=== PATIENT | female | born 1985 | race Caucasian/White ===

== ENCOUNTER 2020-07-12 14:07 | Outpatient (REF) | payer MEDICAID, SELFPAY ==
--- NOTE | 2020-07-12 | XR_ITS ---
EXAMINATION: XR KNEE, RIGHT CLINICAL INFORMATION: Pain. COMPARISON: None TECHNIQUE: AP, lateral, tunnel, and sunrise views of the right knee. FINDINGS: Bones and soft tissues are normal. No fracture or dislocation. There is a very small joint effusion. Alignment is anatomic. Joint spaces are well maintained. No abnormal soft tissue calcification. IMPRESSION: 1. No right knee fracture, dislocation or unusual degenerative change is seen. 2. There is a very small right knee joint effusion. EXAMINATION: XR KNEE, LEFT CLINICAL INFORMATION: Pain. COMPARISON: None TECHNIQUE: AP, lateral, tunnel, and sunrise views of the left knee. FINDINGS: Bones and soft tissues are normal. No fracture or dislocation. There is no significant joint effusion. There is a patella ketty configuration. Joint spaces are well maintained. No abnormal soft tissue calcification. IMPRESSION: 1. No left knee fracture, dislocation or significant joint effusion is seen. 2. The left knee shows a patella ketty configuration.
== END 2020-07-12 14:08 | disposition home or self-care (01) ==
LOC: HO.XRAY 14:07
PROVIDERS: PCP Internal Medicine; Visit Provider Family Medicine
DX: M25.561 Pain in right knee (principal); M25.562 Pain in left knee
CPT/HCPCS: 73564

== ENCOUNTER 2020-07-25 15:00 | Outpatient (RCR) | payer MEDICAID, SELFPAY | END 2020-10-31 12:11 | disposition other institution (70) | LOC: HO.PT 15:00 | PROVIDERS: PCP Internal Medicine; Visit Provider Family Medicine | DX: M25.561 Pain in right knee (principal) | CPT/HCPCS: 97110; 97140; 97161 ==

== ENCOUNTER 2020-10-09 12:37 | Outpatient (REF) | payer MEDICAID, SELFPAY ==
--- NOTE | 2020-10-09 | MR_ITS ---
EXAMINATION: MR KNEE WITHOUT CONTRAST, RIGHT CLINICAL INFORMATION: Primary knee arthrosis. Patient states chronic right knee pain medial the posterior. No recent injury. COMPARISON: Right knee radiographs dated July 12, 2020. TECHNIQUE: MRI of the knee without contrast was performed using routine sequences on a high-field scanner. FINDINGS: MENISCI: Medial Meniscus: Intact. A multiseptated cystic lesion is positioned posterior to the posterior root and posterior horn the medial meniscus (6:05/01), (4:07/28) measuring 0.5 x 1.1 x 0.8 cm, compatible with a parameniscal cyst. Lateral Meniscus: Intact LIGAMENTS: Cruciate: Intact Collateral: Intact EXTENSOR MECHANISM: Intact ARTICULAR CARTILAGE/BONE: Patellofemoral Compartment: Normal Medial Compartment: Normal Lateral Compartment: Normal JOINT FLUID AND BURSAE: Normal MR/MR knee RT wo con IMPRESSION: Right knee: 1. Intact menisci. Multiseptated cystic lesion posterior to the posterior root and posterior horn of the medial meniscus compatible with a parameniscal cyst. 2. Intact cruciate and collateral ligaments. 3. Preserved tricompartmental articular cartilage. 4. Small joint effusion.
== END 2020-10-09 12:38 | disposition home or self-care (01) ==
LOC: HO.MRI 12:37
PROVIDERS: Visit Provider Internal Medicine
DX: M17.11 Unilateral primary osteoarthritis, right knee (principal)
CPT/HCPCS: 73721

== ENCOUNTER → 2020-11-09 08:51 | Outpatient (BNVA) | payer MEDICAID, SELFPAY | PROVIDERS: PCP Internal Medicine; Visit Provider Physician Assistant | DX: M22.2X1 Patellofemoral disorders, right knee (principal); M17.11 Unilateral primary osteoarthritis, right knee | CPT/HCPCS: 20610; 99202; J1040 ==

== ENCOUNTER → 2020-12-07 08:39 | Outpatient (BNVA) | payer MEDICAID, SELFPAY | PROVIDERS: Visit Provider Physician Assistant | DX: Z13.89 Encounter for screening for other disorder (principal) | CPT/HCPCS: 99212 ==

== ENCOUNTER 2021-01-17 10:35 | Outpatient (REF) | payer MEDICAID, SELFPAY ==
[2021-01-17 13:44] LABS: HCG Quantitative < 2 mIU/mL
[2021-01-18 09:05] LABS: CT PCR NOT DETECTED (Not Detect.); NG PCR NOT DETECTED (Not Detect.)
[2021-01-18 11:00] LABS: BV Int Neg Control Negative (Negative); BV Int Pos Control Positive (Positive)
== END 2021-01-17 10:36 | disposition home or self-care (01) ==
LOC: HO.LAB 10:35
PROVIDERS: PCP Internal Medicine; Visit Provider Advanced Practice Midwife
DX: N89.8 Other specified noninflammatory disorders of vagina (principal); N92.6 Irregular menstruation, unspecified; Z20.2 Contact with and (suspected) exposure to infections with a predominantly sexual mode of transmission
CPT/HCPCS: 36415; 81025; 84146; 84702; 87480; 87491; 87510; 87591; 87660; 99202

== ENCOUNTER → 2021-03-20 15:25 | Outpatient (BNVA) | payer MEDICAID, SELFPAY | PROVIDERS: Visit Provider Advanced Practice Midwife ==

== ENCOUNTER → 2021-08-05 11:01 | Outpatient (BNVA) | payer MEDICAID, SELFPAY | PROVIDERS: PCP Internal Medicine; Visit Provider Anesthesiology | DX: M17.11 Unilateral primary osteoarthritis, right knee (principal); M22.2X1 Patellofemoral disorders, right knee | CPT/HCPCS: 99202 ==

== ENCOUNTER 2021-08-28 08:01 | Outpatient (REF) | payer MEDICAID, SELFPAY ==
[2021-08-28 09:42] LABS: Hematocrit 41.1 % (37.0-47.0); Hemoglobin 14.2 g/dl (12.0-16.0); Mean Corpuscular HGB Conc 34.5 g/dl (31.0-35.0); Mean Corpuscular Hemoglobin 31.1 pg (27.0-33.0); Mean Corpuscular Volume 90.1 fL (80.0-98.0); Mean Platelet Volume 10.9 fL (9.4-12.3); Platelet Count 390 X10*3/uL (160-400); Red Blood Count 4.56 X10*6/uL (4.20-5.50); Red Cell Distribution Width 11.4 % (11.0-16.0); White Blood Count 8.8 X10*3/uL (4.8-10.8)
[2021-08-28 10:20] LABS: HCG Quantitative < 2 mIU/mL; Thyroid Stimulating Hormone 0.34 uIU/mL (0.32-4.0)
[2021-08-28 14:04] LABS: CT PCR NOT DETECTED (Not Detect.); NG PCR NOT DETECTED (Not Detect.)
[2021-08-31 01:41] LABS: DHEA Sulfate 76 mcg/dL (23-266)
[2021-09-03 11:07] LABS: Testosterone, Free 2.7 pg/mL (0.1-6.4); Testosterone, Total 20 ng/dL (2-45)
[2021-09-04 06:27] LABS: HPV mRNA E6/E7 rflx Not Detected (Not Detected)
== END 2021-08-28 08:02 | disposition home or self-care (01) ==
LOC: HO.LAB 08:01
PROVIDERS: PCP Internal Medicine; Visit Provider Obstetrics & Gynecology
DX: Z01.411 Encounter for gynecological examination (general) (routine) with abnormal findings (principal); Z11.51 Encounter for screening for human papillomavirus (HPV); N93.9 Abnormal uterine and vaginal bleeding, unspecified; L68.0 Hirsutism
CPT/HCPCS: 36415; 82627; 83498; 84402; 84403; 84443; 84702; 85027; 87491; 87591; 87624; 88142

== ENCOUNTER 2021-09-17 15:37 | Outpatient (REF) | payer MEDICAID, SELFPAY ==
--- NOTE | ~2021-09-17 | US_ITS ---
EXAMINATION: US PELVIS CLINICAL INFORMATION: Hirsutism COMPARISON: 10/20/2019 TECHNIQUE: Ultrasound of the pelvis is performed using both transabdominal and transvaginal transducers along with Doppler. Transvaginal imaging is performed due to inadequate visualization transabdominally. FINDINGS: Uterus: Uterus is measuring 12 x 4.6 x 5.1 cm. Anteverted and mildly anteflexed. The canal measures 8 mm within normal limits. The myometrium is felt to be within normal limits. The right ovary is measuring 4.4 x 3.2 x 2.9 cm. Volume 21 mL. Follicles are noted. No dominant mass or large cyst. There is an element of peripheral location of the follicles. The left ovary is 3.8 x 2.1 x 3.2 cm. Volume 13 mL. Again follicles are seen here. These do appear more peripheral. No free fluid or obvious adnexal mass. Overall vascularity of the ovaries is within normal limits. US/US pelvic and transvaginal IMPRESSION: No acute finding. Ovaries are once again demonstrated with some small follicles which do have a somewhat peripheral location bilaterally.
== END 2021-09-17 15:38 | disposition home or self-care (01) ==
LOC: HO.US 15:37
PROVIDERS: PCP Internal Medicine; Visit Provider Obstetrics & Gynecology
DX: L68.0 Hirsutism (principal)
CPT/HCPCS: 76830; 76856

== ENCOUNTER 2021-09-18 08:30 | Outpatient (REF) | payer MEDICAID, SELFPAY | END 2021-09-18 08:31 | disposition home or self-care (01) | LOC: HO.LAB 08:30 | PROVIDERS: PCP Internal Medicine; Visit Provider Obstetrics & Gynecology | DX: N93.9 Abnormal uterine and vaginal bleeding, unspecified (principal) | CPT/HCPCS: 58100; 88305 ==

== ENCOUNTER → 2021-10-03 16:13 | Outpatient (BNVA) | payer MEDICAID, SELFPAY | PROVIDERS: Visit Provider Obstetrics & Gynecology ==

== ENCOUNTER 2021-11-21 | Outpatient (REF) | payer MEDICAID, SELFPAY ==
[2021-10-18 15:39] VITALS: BMI 35.0
--- NOTE | 2021-11-20 13:09 | HO.ANESPROP2 ---
HPI - Anesthesia Eval Consult details Narrative: 36yo F for Right Genicular Nerve Block Diagnostic PMFSH Active Problems Active Problems: All Active Problems (Updated 10/18/21 @ 15:43 by Sadaf Ansari, RN) Patellofemoral syndrome of right knee (Acute) Patellofemoral arthritis of right knee (Acute) Problematic vaginal discharge (Acute) Potential exposure to STD (Acute) Irregular menses (Acute) Well woman exam (Acute) Abnormal uterine bleeding (AUB) (Acute) Hirsutism (Acute) Past Medical History Medical History (Updated 10/18/21 @ 15:43 by Sadaf Ansari, RN) Acid reflux Asthma COVID-19 vaccine series completed Dysplasia of cervix, low grade (WALLACE 1) Hypertension Personal history of COVID-19 Surgical History Surgical History History of section Hx of appendectomy Social History Social History (Updated 10/18/21 @ 15:38 by Sadaf Ansari RN) Alcohol intake: never Patient Tobacco Use Status: Never used Tobacco 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 Gender identity: Female Meds Allergies Allergy/AdvReac Type Severity Reaction Status Date / Time No Known Allergies Allergy Verified 10/18/21 15:38 [No Known Allergies*] Home Medications Medication Instructions Recorded Confirmed Last Taken Type cetirizine 10 mg capsule (All Day 10 mg PO DAILY PRN 11/09/20 10/18/21 Unknown History Allergy (cetirizine)) famotidine 40 mg tablet 40 mg PO BEDTIME 11/09/20 10/18/21 Unknown History nifedipine 30 mg tablet,extended 30 mg PO DAILY 11/09/20 10/18/21 Unknown History release naproxen 500 mg tablet 500 mg PO BID 08/05/21 Unknown History montelukast 10 mg tablet 10 mg PO DAILY 08/28/21 10/18/21 Unknown History Exam Exam Date and Time: November 20, 2021 1309 Height,Weight and Vital Signs: Height 5 ft 4 in Weight 92.533 kg Pertinent Lab Results Pertinent Lab Results: Laboratory Tests 08/28/21 08:57 WBC 8.8 Hgb 14.2 Hct 41.1 Plt Count 390 Assessment and Plan Assessment Anesthesia Assessment: Chart Reviewed
== END 2021-11-21 00:01 ==
LOC: CF
PROVIDERS: PCP Internal Medicine; Visit Provider Advanced Practice Midwife
DX: N93.9 Abnormal uterine and vaginal bleeding, unspecified (principal); N92.0 Excessive and frequent menstruation with regular cycle; L68.0 Hirsutism; E28.2 Polycystic ovarian syndrome; Z86.16 Personal history of COVID-19; Z32.02 Encounter for pregnancy test, result negative; Z20.2 Contact with and (suspected) exposure to infections with a predominantly sexual mode of transmission
CPT/HCPCS: 81025; 87480; 87491; 87510; 87591; 87660; 99212

== ENCOUNTER 2021-11-21 13:16 | Outpatient (REF) | payer MEDICAID, SELFPAY ==
[2021-11-22 12:24] LABS: BV Int Neg Control Negative (Negative); BV Int Pos Control Positive (Positive)
[2021-11-22 13:05] LABS: CT PCR NOT DETECTED (Not Detect.); NG PCR NOT DETECTED (Not Detect.)
== END 2021-11-21 13:17 | disposition home or self-care (01) ==
LOC: HO.LAB 13:16
PROVIDERS: Visit Provider Advanced Practice Midwife
DX: Z01.419 Encounter for gynecological examination (general) (routine) without abnormal findings (principal); N92.0 Excessive and frequent menstruation with regular cycle; Z20.2 Contact with and (suspected) exposure to infections with a predominantly sexual mode of transmission
CPT/HCPCS: 87480; 87491; 87510; 87591; 87660

== ENCOUNTER → 2021-12-10 20:48 | Outpatient (REF) | payer MEDICAID, SELFPAY | LOC: HO.SL 20:48 | PROVIDERS: PCP Internal Medicine; Visit Provider Internal Medicine | DX: G47.33 Obstructive sleep apnea (adult) (pediatric) (principal) | CPT/HCPCS: 95810 ==

== ENCOUNTER → 2022-02-04 09:46 | Outpatient (BNVA) | payer MEDICAID, SELFPAY | PROVIDERS: PCP Internal Medicine; Visit Provider Nurse Practitioner Family | DX: M22.2X1 Patellofemoral disorders, right knee (principal); M17.11 Unilateral primary osteoarthritis, right knee; M25.561 Pain in right knee | CPT/HCPCS: 99212 ==

== ENCOUNTER 2022-03-18 06:20 | Outpatient (REF) | payer MEDICAID, SELFPAY | END 2022-03-18 06:21 | disposition home or self-care (01) | LOC: HO.RADIR 06:20 | PROVIDERS: Visit Provider Anesthesiology | DX: M22.2X1 Patellofemoral disorders, right knee (principal); M17.11 Unilateral primary osteoarthritis, right knee | CPT/HCPCS: 64447; J2795 ==

== ENCOUNTER → 2022-03-25 14:06 | Outpatient (BNVA) | payer MEDICAID, SELFPAY | PROVIDERS: PCP Internal Medicine; Visit Provider Nurse Practitioner Family | DX: M22.2X1 Patellofemoral disorders, right knee (principal); M17.11 Unilateral primary osteoarthritis, right knee; M25.561 Pain in right knee | CPT/HCPCS: 99212 ==

== ENCOUNTER 2022-04-08 16:47 | Emergency (ER) | payer MEDICAID, SELFPAY ==
--- NOTE | ~2022-04-08 | XR_ITS ---
EXAMINATION: XR CHEST CLINICAL INFORMATION: Chest tightness COMPARISON: 08/15/2019 TECHNIQUE: Frontal view of the chest was obtained. FINDINGS: Interval resolution of the right upper lobe focal opacity. No new or increasing pulmonary consolidations. No pleural effusion or pneumothorax. Heart size is normal. No acute osseous abnormality. XR/XR chest 1V IMPRESSION: No acute pulmonary process. Interval resolution of the right upper lobe consolidation.
[2022-04-08 19:10] VITALS: BMI 36.2
[2022-04-08 19:22] VITALS: BP 133/76; PULSE 81; RESP 16; TEMP 36.9; O2SAT 94
[2022-04-08 19:39] VITALS: BP 156/91; PULSE 90; RESP 20; TEMP 36.9; O2SAT 97
[2022-04-08 19:49] LABS: Influenza A Negative (Negative); Influenza B2 Negative (Negative)
[2022-04-08 19:50] LABS: COVID-19 Test Negative (Negative); IDNOW Serial# 16C4AD1C
--- NOTE | 2022-04-08 20:17 | ED.URI ---
HPI - URI/Sore Throat General Chief Complaint: Upper Respiratory Symptoms Stated Complaint: body aches/headaches/chills Time Seen by Provider: 04/08/22 19:29 Source: patient Mode of arrival: ambulatory History of Present Illness HPI Narrative: 37-year-old female with a past medical history of GERD, asthma, COVID-19 in October, , presenting to the ED complaining of nonproductive cough x2 days with chest tightness and SOB. Also reports nasal congestion, and chest discomfort when coughing. States symptoms not improved with nebs at home. Denies fever, chills, recent travel, pedal edema, calf pain, sick contacts MD elicited complaint: rhinorrhea and nasal congestion Onset (ago): day(s) Related Data Home Medications Medication Instructions Recorded Confirmed cetirizine 10 mg capsule (All Day 10 mg PO DAILY PRN Allergy Symptoms 11/09/20 11/21/21 Allergy (cetirizine)) famotidine 40 mg tablet 40 mg PO BEDTIME 11/09/20 11/21/21 acetaminophen 650 mg 650 mg PO Q8H PRN 02/04/22 tablet,extended release albuterol sulfate mg inhalation wheezing 02/04/22 albuterol sulfate 90 mcg/actuation 2 puff PO Q4-6H PRN 02/04/22 aerosol inhaler (ProAir HFA) fluticasone propionate 50 1 - 2 spray intranasal DAILY PRN 02/04/22 mcg/actuation nasal spray,suspension ibuprofen 800 mg tablet 800 mg PO TID 02/04/22 nifedipine 60 mg tablet,extended 60 mg PO DAILY 02/04/22 release 24 hr Previous Rx's Medication Instructions Recorded prednisone 20 mg tablet 40 mg PO DAILY 5 days #10 tabs 04/08/22 Allergies Allergy/AdvReac Type Severity Reaction Status Date / Time No Known Allergies Allergy Verified 04/08/22 19:12 [No Known Allergies*] Review of Systems Review of Systems: Constitutional: No Fever, No Chills ENT/Mouth: No Ear Pain, + Nasal Congestion, No Sinus Pain, No Hoarseness, No sore throat, + Rhinorrhea, No Swallowing Difficulty Cardiovascular: + Chest tightness, + SOB Respiratory: + Cough, No Sputum, + Wheezing Gastrointestinal: No Nausea, No Vomiting, No Diarrhea, No Constipation, No Abdominal pain Genitourinary: No Dysuria, No Urinary Frequency, No Hematuria Musculoskeletal: No joint pain, No Myalgias, No Joint Swelling Skin: No Skin Lesions, No rash Neuro: No Weakness, No Numbness, No Paresthesias Yes all other systems are reviewed and are negative [facility] Past Medical History Attestation statement: The following information was validated with the patient. 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 Gender identity: Female Physical Exam Vital Signs: Vital Signs: Last Vital Signs Temp 98.4 F 04/08/22 19:39 Pulse 90 04/08/22 20:54 Resp 20 04/08/22 20:54 BP 156/91 H 04/08/22 19:39 Pulse Ox 97 04/08/22 19:39 O2 Del Method 04/08/22 19:39 BMI result Body Mass Index 36.2 Const: General: cooperative, healthy appearing and no acute distress Orientation/consciousness: patient oriented x3 Limitations: no limitations HEENT: Head: Yes normal to inspection and Yes atraumatic Ears: hearing grossly normal bilaterally General nose exam: Normal external nose present Face and sinus: Yes normal facial exam Mouth: Normal oral and palatal mucosa present Throat: Yes posterior oropharynx normal, Yes tonsils normal, Yes uvula midline, No abnormal tonsil, No peritonsillar mass, No uvula laterally displaced and No uvular edema Eyes: General: appearance normal, both eyes and all related structures EOM: EOMs intact bilaterally Neck: Neck: Yes normal visual inspection and Yes no meningeal signs Resp: Effort & Inspection: normal respiratory effort, Actively coughing Quality: dry, not labored and no respiratory distress Auscultation: wheezes expiratory wheezes Cardio: Rate: regular rate Heart sounds: S1 normal heart sound present and S2 normal heart sound present Skin: Rashes: no rashes Wounds: no wounds Neuro: General: patient oriented x3, tone normal and no meningeal signs Gait exam (Neuro): Normal gait present Extrem: General: Yes normal to inspection, Yes no pedal edema and Yes no calf tenderness Course Course Course Narrative: -COVID-19 and influenza negative -2204--labs unremarkable. Troponin negative XR chest 1V IMPRESSION: No acute pulmonary process. Interval resolution of the right upper lobe consolidation. On re-evaluation after DuoNeb patient reports symptomatic improvement, lungs CTA. Patient requesting additional DuoNeb. MDM - URI/Sore Throat MDM Narrative Medical decision making narrative: 37-year-old female with a past medical history of GERD, asthma, COVID-19 in October, HTN, presenting to the ED complaining of nonproductive cough x2 days with chest tightness and SOB. On exam vital signs stable, and ADD/nontoxic-appearing, talking in complete sentences/no respiratory distress. Diffuse expiratory wheeze noted. Concern for asthma exacerbation vs viral syndrome vs bronchitis vs pna. Symptoms atypical for ACS/PE Plan: EKG, labs, CXR, COVID-19/influenza testing, IV Solu-Medrol, DuoNeb Differential Diagnosis Differential diagnosis: Likely upper respiratory infection, viral infection, bronchitis, influenza and pharyngitis Medical Records Attestation: I reviewed the patient's medical records. Lab Data Attestation: I reviewed the patient's lab results. Result diagrams: 04/08/22 20:25 04/08/22 20:26 Labs: Lab Results 04/08/22 04/08/22 04/08/22 Range/Units 19:23 19:23 20:25 WBC 6.6 (4.8-10.8) X10*3/uL RBC 4.33 (4.20-5.50) X10*6/uL Hgb 13.5 (12.0-16.0) g/dl Hct 38.5 (37.0-47.0) % MCV 88.9 (80.0-98.0) fL MCH 31.2 (27.0-33.0) pg MCHC 35.1 H (31.0-35.0) g/dl RDW 11.6 (11.0-16.0) % Plt Count 267 D (160-400) X10*3/uL MPV 10.3 (9.4-12.3) fL Immature Gran % (Auto) 0.2 (0.0-0.4) % Neut % (Auto) 68.6 (45-73) % Lymph % (Auto) 13.0 L (20-40) % [place] % (Auto) 10.7 (2-11) % Eos % (Auto) 6.9 H (0-4) % Baso % (Auto) 0.6 (0-2) % Lymph # (Auto) 0.9 L (1.2-4.9) X10*3/uL [place] # (Auto) 0.7 (0.1-1.2) X10*3/uL Eos # (Auto) 0.5 H (0.0-0.4) X10*3/uL Baso # (Auto) 0.0 (0.0-0.2) X10*3/uL Abs Immat Gran (auto) 0.01 (0.00-0.03) X10*3/uL Absolute Neuts (auto) 4.5 (2.0-8.3) x10*3/uL Absolute Nucleated RBC 0.000 (0.0-0.012) X10*3/uL Nucleated RBC % (auto) 0.0 (0.0-0.2) /100WBC Sodium (135-145) mmol/L Potassium (3.3-5.1) mmol/L Chloride (96-108) mmol/L Carbon Dioxide (22-29) mmol/L Anion Gap (12-20) BUN (9-16) mg/dL Creatinine (0.5-1.4) mg/dL Estim Creat Clear Calc Estimated GFR Random Glucose (60-115) mg/dL Calcium (8.4-10.2) mg/dL Troponin I High Sens (<3.5-17.0) ng/L B-Natriuretic Peptide (<100) pg/mL COVID-19 (AGUSTINA) Negative (Negative) COVID-19 Clin Com See Note Influenza Type A (ISMAEL) Negative (Negative) Influenza Type B (ISMAEL) Negative (Negative) Influenza A & B Note See Note 04/08/22 04/08/22 Range/Units 20:25 20:26 WBC (4.8-10.8) X10*3/uL RBC (4.20-5.50) X10*6/uL Hgb (12.0-16.0) g/dl Hct (37.0-47.0) % MCV (80.0-98.0) fL MCH (27.0-33.0) pg MCHC (31.0-35.0) g/dl RDW (11.0-16.0) % Plt Count (160-400) X10*3/uL MPV (9.4-12.3) fL Immature Gran % (Auto) (0.0-0.4) % Neut % (Auto) (45-73) % Lymph % (Auto) (20-40) % [place] % (Auto) (2-11) % Eos % (Auto) (0-4) % Baso % (Auto) (0-2) % Lymph # (Auto) (1.2-4.9) X10*3/uL [place] # (Auto) (0.1-1.2) X10*3/uL Eos # (Auto) (0.0-0.4) X10*3/uL Baso # (Auto) (0.0-0.2) X10*3/uL Abs Immat Gran (auto) (0.00-0.03) X10*3/uL Absolute Neuts (auto) (2.0-8.3) x10*3/uL Absolute Nucleated RBC (0.0-0.012) X10*3/uL Nucleated RBC % (auto) (0.0-0.2) /100WBC Sodium 138 (135-145) mmol/L Potassium 3.8 (3.3-5.1) mmol/L Chloride 107 (96-108) mmol/L Carbon Dioxide 22 (22-29) mmol/L Anion Gap 13 (12-20) BUN 8 L (9-16) mg/dL Creatinine 0.75 (0.5-1.4) mg/dL Estim Creat Clear Calc 116.4 Estimated GFR > 60 Random Glucose 118 H (60-115) mg/dL Calcium 8.7 (8.4-10.2) mg/dL Troponin I High Sens < 3.5 (<3.5-17.0) ng/L B-Natriuretic Peptide < 10 (<100) pg/mL COVID-19 (AGUSTINA) (Negative) COVID-19 Clin Com Influenza Type A (ISMAEL) (Negative) Influenza Type B (ISMAEL) (Negative) Influenza A & B Note Discharge Plan Discharge Clinical Impression: Asthma with acute exacerbation Patient Disposition: Home, Self-Care Instructions: Asthma (ED) Additional Instructions: Your x-ray does not show any acute pneumonia. Her blood work was reassuring. Please use her nebulizer machine at home as well as your inhalers. In addition start taking prednisone which is a steroid. Follow up with her doctor. If symptoms persist or worsen please return to the emergency department Tuttle radiograf?a no muestra ninguna neumon?a aguda. Tuttle an?lisis de patricia fue tranquilizador. Utilice tuttle m?quina nebulizadora en casa, as? codey merly inhaladores. Adem?s, comience a surjit prednisona, que es un esteroide. Seguimiento con tuttle m?dico. Si los s?ntomas persisten o empeoran, regrese al departamento de emergencias. Prescriptions: New prednisone 20 mg tablet 40 mg PO DAILY 5 Days Qty: 10 0RF No Action All Day Allergy (cetirizine) 10 mg capsule 10 mg PO DAILY PRN (Reason: Allergy Symptoms) famotidine 40 mg tablet 40 mg PO BEDTIME fluticasone propionate 50 mcg/actuation spray,suspension 1 - 2 spray intranasal DAILY PRN acetaminophen 650 mg tablet extended release 650 mg PO Q8H PRN ibuprofen 800 mg tablet 800 mg PO TID albuterol sulfate 2.5 mg /3 mL (0.083 %) solution for nebulization inhalation nifedipine 60 mg tablet extended release 24hr 60 mg PO DAILY albuterol sulfate [ProAir HFA] 90 mcg/actuation HFA aerosol inhaler 2 puff PO Q4-6H PRN Referrals: Maile Coy MD [Primary Care Provider] - 3 days Stand Alone Forms: Work/School Release Print Language: Vietnamese
--- NOTE | 2022-04-08 20:21 | ECG_ITS ---
Test Reason : RESPIRATORY PROBLEMS Blood Pressure : / mmHG Vent. Rate : 088 BPM Atrial Rate : 088 BPM P-R Int : 144 ms QRS Dur : 080 ms QT Int : 372 ms P-R-T Axes : 049 009 044 degrees QTc Int : 450 ms Normal sinus rhythm Normal ECG No previous ECGs available Referred By: Mary Salas Electronically Signed By:Atul Nuñez
[2022-04-08 20:32] LABS: Basophils Percent Auto 0.6 % (0-2); Eosinophils Absolute Auto 0.5 X10*3/uL (0.0-0.4); Eosinophils Percent Auto 6.9 % (0-4); Hematocrit 38.5 % (37.0-47.0); Hemoglobin 13.5 g/dl (12.0-16.0); Imm Gran Abs Auto 0.01 X10*3/uL (0.00-0.03); Imm Gran Pct Auto 0.2 % (0.0-0.4); Lymphocytes Absolute Auto 0.9 X10*3/uL (1.2-4.9); MANUAL DIFF FLAG NO; Mean Corpuscular HGB Conc 35.1 g/dl (31.0-35.0); Mean Corpuscular Hemoglobin 31.2 pg (27.0-33.0); Mean Corpuscular Volume 88.9 fL (80.0-98.0); Mean Platelet Volume 10.3 fL (9.4-12.3); Monocytes Absolute Auto 0.7 X10*3/uL (0.1-1.2); Monocytes Percent Auto 10.7 % (2-11); Neutrophils Absolute Auto 4.5 x10*3/uL (2.0-8.3); Neutrophils Percent Auto 68.6 % (45-73); Platelet Count 267 X10*3/uL (160-400); Red Blood Count 4.33 X10*6/uL (4.20-5.50); Red Cell Distribution Width 11.6 % (11.0-16.0); White Blood Count 6.6 X10*3/uL (4.8-10.8)
[2022-04-08] MEDS: Albuterol Sulfate (0.083%) 2.5 MG/3 ML VIAL.NEB 5 MG INHALE (20:42)
[2022-04-08] MEDS: Albuterol/Iprat 2.5/0.5MG 3 ML AMPUL.NEB INHALE ×2 (20:42→21:52)
[2022-04-08 20:46] LABS: Anion Gap 13 (12-20); Blood Urea Nitrogen 8 mg/dL (9-16); Calcium 8.7 mg/dL (8.4-10.2); Carbon Dioxide 22 mmol/L (22-29); Chloride 107 mmol/L (96-108); Creatinine Clr Calc Pharmacy 116.4; Estimated Glomerular Filt Rate > 60; Glucose Random 118 mg/dL (60-115); Potassium 3.8 mmol/L (3.3-5.1); Sodium 138 mmol/L (135-145)
[2022-04-08 20:54] VITALS: PULSE 90; RESP 20; O2SAT 97
[2022-04-08 20:54] LABS: B Type Natriuretic Peptide < 10 pg/mL (<100); Troponin-I High Sensitivity < 3.5 ng/L (<3.5-17.0)
[2022-04-08] MEDS: methylPREDNISolone Sod Succ 125 MG/2 ML VIAL IVPUSH (21:14)
== END 2022-04-08 22:45 | disposition home or self-care (01) ==
PROVIDERS: Physician Assistant; Emergency Provider Internal Medicine; PCP Internal Medicine
DX: J45.901 Unspecified asthma with (acute) exacerbation (principal); M79.10 Myalgia, unspecified site; R51.9 Headache, unspecified; R06.02 Shortness of breath; R07.89 Other chest pain; Z20.822 Contact with and (suspected) exposure to COVID-19; Z79.899 Other long term (current) drug therapy
CPT/HCPCS: 36415; 71045; 80048; 83880; 84484; 85025; 87502; 87635; 93005; 94640; 96374; 99284; J2930

== ENCOUNTER 2022-04-15 06:03 | Outpatient (REF) | payer MEDICAID, SELFPAY | END 2022-04-15 06:04 | disposition home or self-care (01) | LOC: HO.RADIR 06:03 | PROVIDERS: Visit Provider Anesthesiology | DX: M22.2X1 Patellofemoral disorders, right knee (principal); M17.11 Unilateral primary osteoarthritis, right knee | CPT/HCPCS: 64447 ==

== ENCOUNTER → 2022-10-09 09:43 | Outpatient (BNVA) | payer MEDICAID, SELFPAY | PROVIDERS: PCP Internal Medicine; Visit Provider Student in an Organized Health Care Education/Training Program | DX: M25.561 Pain in right knee (principal) | CPT/HCPCS: 99202 ==

== ENCOUNTER 2022-10-14 08:26 | Outpatient (REF) | payer MEDICAID, SELFPAY ==
[2022-10-18 05:38] LABS: HPV 16 RNA NOT DETECTED (NOT DETECTED); HPV mRNA E6/E7 rflx Detected (Not Detected)
== END 2022-10-14 08:27 | disposition home or self-care (01) ==
LOC: HO.LNP 08:26
PROVIDERS: PCP Internal Medicine; Visit Provider Obstetrics & Gynecology
DX: Z01.419 Encounter for gynecological examination (general) (routine) without abnormal findings (principal); Z11.51 Encounter for screening for human papillomavirus (HPV)
CPT/HCPCS: 87624; 87625; 88142

== ENCOUNTER 2022-11-18 08:40 | Outpatient (REF) | payer MEDICAID, SELFPAY | END 2022-11-18 08:41 | disposition home or self-care (01) | LOC: HO.LNP 08:40 | PROVIDERS: PCP Internal Medicine; Visit Provider Obstetrics & Gynecology | DX: B97.7 Papillomavirus as the cause of diseases classified elsewhere (principal); Z32.02 Encounter for pregnancy test, result negative | CPT/HCPCS: 57454; 81025; 88305 ==

== ENCOUNTER → 2022-12-10 07:58 | Outpatient (BNVA) | payer MEDICAID, SELFPAY | PROVIDERS: PCP Internal Medicine; Visit Provider Obstetrics & Gynecology | DX: Z71.2 Person consulting for explanation of examination or test findings (principal); N87.0 Mild cervical dysplasia | CPT/HCPCS: 99212 ==

== ENCOUNTER 2024-01-27 08:47 | Outpatient (AMB) | payer OTHER, SELFPAY ==
--- NOTE | 2024-01-27 08:57 | A.OFFVIS_ITS ---
Vital Signs 01/27/24 09:02 Height 5 ft 4 in Weight 224 lb BMI 38.4 BP 100/60 Intake Visit Reasons: BURNER SHAFT annual exam Straightening Press Operator Helper Required: Yes Straightening Press Operator Helper Language: Senior Communications Specialist Name: Cristin CALIX Information Interpreted: non-clinical & clinical Precast Molder: Precast Molder Present (Cristin CALIX) Accompanied by: Self / Same As Patient Allergies No Known Allergies [No Known Allergies*] Allergy (Verified 01/27/24 09:03) Is last menstrual period known: Yes Last menstrual period: 01/10/24 HPI Comments Details: Presenting for annual exam. No complaints. Last Pap/HPV was negative/HPV positive in 10/27, colpo/biopsy showed WALLACE [address] [facility] Medical History (Updated 01/27/24 @ 09:07 by Jack Justin MD) Personal history of COVID-19 COVID-19 vaccine series completed Dysplasia of cervix, low grade (WALLACE 1) Acid reflux Asthma Hypertension Surgical History Hx of appendectomy History of section Family History (Updated 01/27/24 @ 09:05 by Cristin Wall CMA) Maternal Grandmother HTN (hypertension) Diabetes Father HTN (hypertension) Mother HTN (hypertension) Social History Household Members Other:: daughter Housing: Apartment Alcohol intake: current Alcohol intake frequency: holidays/special occasions only Patient Tobacco Use Status: Former Tobacco user Current occupational status: employed 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 Sexual orientation: Straight/Heterosexual Gender identity: Female Female Reproductive History Menstrual Age of Menarche: 10 Date of last menstrual period: 01/10/24 control method: none Total pregnancies: 1 Full term: 1 Number of Living Children: 1 Date of last pap smear: 10/14/22 Review of Systems Const All systems reviewed & are unremarkable except as noted in HPI and below Card Reports as per HPI Resp Reports as per HPI GI Reports as per HPI and Reports no additional complaints Reports as per HPI Physical Exam Vital Signs: BMI result Body Mass Index 38.4 Const General: cooperative, healthy appearing and comfortable Chest Chest palpation & inspection: normal inspection of the chest and normal palpation of entire chest wall Breast/axilla inspection: normal inspection of the breasts and normal inspection of the axillae Breast/axilla palpation: normal palpation of the breasts, normal palpation of the axillae and no axillary lymphadenopathy Resp Effort & Inspection: normal respiratory effort Auscultation: clear to auscultation bilaterally Percussion: percussion normal Cardio Palpation: normal PMI Rate: regular rate Rhythm: regular rhythm Heart sounds: no murmurs and no rubs Peripheral pulses: Peripheral pulses 2+ throughout GI Inspection: Yes normal to inspection Palpation (GI): Soft to palpation, nontender, no guarding, not rigid and No hepatosplenomegaly present Percussion: Yes normal to percussion Auscultation: normal bowel sounds Rectal Exam - Female: deferred General: Yes bladder normal to palpation External Female Exam: No lesion Speculum Exam - Vagina: normal appearance of the vagina, normal palpation, normal vaginal discharge and not erythematous Speculum Exam - Cervix: normal appearance of the cervix and normal palpation Bimanual exam- vagina & uterus: normal bimanual exam, normal palpation, uterine size normal, bladder normal to palpation, consistency normal and normal palpation Bimanual Exam- Adnexa, other: normal adnexae, no masses and no tenderness Assessment & Plan Assessment & Plan (1) Well woman exam: Comment: History of WALLACE 1 in 2018 followed by negative co testing WALLACE 1 in 10/27 Code(s): Z01.419 - Encounter for gynecological examination (general) (routine) without abnormal findings Category: Medical Plan: Cotesting done. Counseled the patient about the recommended dietary allowance of 1000 mg of Calcium & 600 IU of vitamin D. The patient was instructed to perform monthly self-breast exams and to schedule an annual exam in a year; All questions answered and the patient verbalized understanding. Instructed the patient to schedule annual exam in a year Coding Level of Care Code Est Pt Prev Care 18-39y(96683) Diagnoses Well woman exam Z01.419
[2024-01-27 09:02] VITALS: BP 100/60; BMI 38.4
== END 2024-01-27 10:26 | disposition home or self-care (01) ==
LOC: HO.HWS 08:47
PROVIDERS: PCP Internal Medicine; Visit Provider Obstetrics & Gynecology
DX: Z01.419 Encounter for gynecological examination (general) (routine) without abnormal findings (principal)
CPT/HCPCS: 99395

== ENCOUNTER 2024-01-27 08:47 | Outpatient (REF) | payer OTHER, SELFPAY ==
[2024-02-02 06:49] LABS: HPV mRNA E6/E7 rflx Not Detected (Not Detected)
== END 2024-01-27 08:48 | disposition home or self-care (01) ==
LOC: HO.LNP 08:47
PROVIDERS: PCP Internal Medicine; Visit Provider Obstetrics & Gynecology
DX: Z01.419 Encounter for gynecological examination (general) (routine) without abnormal findings (principal); Z11.51 Encounter for screening for human papillomavirus (HPV); N87.0 Mild cervical dysplasia; B97.7 Papillomavirus as the cause of diseases classified elsewhere
CPT/HCPCS: 87624; 88142; 99395

== ENCOUNTER 2024-05-12 10:41 | Outpatient (REF) | payer OTHER, SELFPAY ==
[2024-05-12 13:59] LABS: Anion Gap 11 (12-20); Blood Urea Nitrogen 8 mg/dL (9-16); Calcium 9.1 mg/dL (8.4-10.2); Carbon Dioxide 29 mmol/L (22-29); Chloride 106 mmol/L (96-108); Cholesterol 145 mg/dL (<200); Estimated Glomerular Filt Rate > 60; Glucose Random 101 mg/dL (60-115); HDL Cholesterol 42 mg/dL (>40); LDL Cholesterol Calculated 85 mg/dL (<100); Potassium 3.9 mmol/L (3.3-5.1); Sodium 142 mmol/L (135-145); Triglycerides 90 mg/dL (<150)
[2024-05-12 14:02] LABS: Vitamin D 25-OH Total 35.5 ng/mL (>30)
[2024-05-12 14:22] LABS: Reflex LDLD? No
== END 2024-05-12 10:42 | disposition home or self-care (01) ==
LOC: HO.HHCL 10:41
PROVIDERS: Visit Provider Internal Medicine
DX: J45.40 Moderate persistent asthma, uncomplicated (principal); I10 Essential (primary) hypertension
CPT/HCPCS: 36415; 80048; 80061; 82306

== ENCOUNTER 2024-05-26 12:12 | Outpatient (REF) | payer OTHER, SELFPAY ==
[2024-05-26 13:54] LABS: HCG Quantitative < 2 mIU/mL
== END 2024-05-26 12:13 | disposition home or self-care (01) ==
LOC: HO.HHCL 12:12
PROVIDERS: Visit Provider Internal Medicine
DX: N91.2 Amenorrhea, unspecified (principal)
CPT/HCPCS: 36415; 84702

== ENCOUNTER 2024-06-15 10:52 | Outpatient (AMB) | payer OTHER, SELFPAY ==
--- NOTE | 2024-06-15 10:54 | A.OFFVIS_ITS ---
Vital Signs 06/15/24 10:56 Height 5 ft 4 in Weight 222 lb 10.67 oz BMI 38.2 BP 128/76 Intake Visit Reasons: Breast discharge Costume Maker Required: Yes Costume Maker Language: Satellite Communications Operator Services: Costume Maker Present (in person) Costume Maker Name: Cristin CALIX Information Interpreted: non-clinical & clinical Brake Operator: Brake Operator Present (Cristin CALIX) Accompanied by: Self / Same As Patient Allergies No Known Allergies [No Known Allergies*] Allergy (Verified 06/15/24 10:59) Is last menstrual period known: Yes Last menstrual period: 05/26/24 HPI Comments Details: Presenting complaining of bilateral nipple discharge started a month ago around her menstrual cycle and recurred this month. The patient felt breast engorgement premenstrually once she touched her breast she had bilateral nipple white discharge no bloody discharge, it was bilateral and no breast lumps felt by the patient. 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 Sexual orientation: Straight/Heterosexual Gender identity: Female Female Reproductive History Menstrual Age of Menarche: 10 Date of last menstrual period: 05/26/24 Physical Exam Vital Signs: Last Vital Signs BP 128/76 06/15/24 10:56 BMI result Body Mass Index 38.2 Chest Chest palpation & inspection: normal inspection of the chest Breast/axilla inspection: normal inspection of the breasts and normal inspection of the axillae Breast/axilla palpation: normal palpation of the breasts Assessment & Plan Assessment & Plan (1) Bilateral nipple discharge: Code(s): N64.52 - Nipple discharge Category: Medical Plan: Discussed with the patient the finding on bilateral breast exam being normal, since the discharge with bilateral, nonbloody and is not associated with any mass or skin changes, will order TSH, prolactin. Since the patient has below the age of 40 there is no indication for screening mammogram. Instructions given the patient to call in case of a palpable lump, bloody and/or unilateral nipple discharge . Instructions given the patient to follow-up in 2 weeks. All questions answered, the patient verbalized understanding Coding Level of Care Code Est Pt Level 3 (15946) Diagnoses Bilateral nipple discharge N64.52
[2024-06-15 10:56] VITALS: BP 128/76; BMI 38.2
== END 2024-06-15 11:21 | disposition home or self-care (01) ==
PROVIDERS: PCP Internal Medicine; Visit Provider Obstetrics & Gynecology
DX: N64.52 Nipple discharge (principal)
CPT/HCPCS: 99213

== ENCOUNTER → 2024-06-15 10:52 | Outpatient (BNVA) | payer OTHER, SELFPAY | PROVIDERS: PCP Internal Medicine; Visit Provider Obstetrics & Gynecology | DX: N64.52 Nipple discharge (principal) | CPT/HCPCS: 99212 ==

== ENCOUNTER 2024-06-20 09:01 | Outpatient (REF) | payer OTHER, SELFPAY ==
[2024-06-20 12:32] LABS: Thyroid Stimulating Hormone 0.41 uIU/mL (0.32-4.0)
[2024-06-21 08:48] LABS: Prolactin 8.8 ng/mL
== END 2024-06-20 09:02 | disposition home or self-care (01) ==
LOC: HO.HHCL 09:01
PROVIDERS: Visit Provider Obstetrics & Gynecology
DX: N64.3 Galactorrhea not associated with childbirth (principal)
CPT/HCPCS: 36415; 84146; 84443

== ENCOUNTER 2024-06-29 08:15 | Outpatient (AMB) | payer OTHER, SELFPAY ==
--- NOTE | 2024-06-29 08:23 | A.OFFVIS_ITS ---
Vital Signs 06/29/24 08:52 Height 5 ft 4 in Weight 222 lb 10.67 oz BMI 38.2 Intake Visit Reasons: labs results Business Development Associate Required: Yes Business Development Associate Language: Floor Coverer Services: Business Development Associate Present (in person) Business Development Associate Name: Cristin CALIX Information Interpreted: non-clinical & clinical Accompanied by: Self / Same As Patient Allergies No Known Allergies [No Known Allergies*] Allergy (Verified 06/29/24 08:53) HPI Comments Details: Presenting for follow-up regarding bilateral spontaneous nipple discharge nonbloody, with no evidence of palpable masses on physical exam. TSH/prolactin within normal [facility] Medical History Personal history of COVID-19 COVID-19 vaccine series completed Dysplasia of cervix, low grade ([place]ALLACE 1) Acid reflux Asthma Hypertension Surgical History Hx of appendectomy History of section Family History Maternal Grandmother HTN (hypertension) Diabetes Father HTN (hypertension) Mother HTN (hypertension) Social History Household Members Other:: daughter Housing: Apartment Alcohol intake: current Alcohol intake frequency: holidays/special occasions only Patient Tobacco Use Status: Former Tobacco user Current occupational status: employed 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 Since there is no palpable mass on clinical evaluation and there is no evidence of unilateral or bloody discharge and it is not associated with a any mass or skin changes on breast exam, the diagnosis physiological discharge/galactorrhea. Since the patient is below the age of 40 there is no indication for screening mammogram. Instructions given the patient to call in case of bloody discharge, palpable mass or skin changes or any other changes. All questions answered, the patient verbalized understanding Coding Level of Care Code Est Pt Level 3 (76952) Diagnoses Bilateral nipple discharge N64.52
[2024-06-29 08:52] VITALS: BMI 38.2
== END 2024-06-29 08:55 | disposition home or self-care (01) ==
PROVIDERS: PCP Internal Medicine; Visit Provider Obstetrics & Gynecology
DX: N64.52 Nipple discharge (principal)
CPT/HCPCS: 99213

== ENCOUNTER → 2024-06-29 08:15 | Outpatient (BNVA) | payer OTHER, SELFPAY | PROVIDERS: PCP Internal Medicine; Visit Provider Obstetrics & Gynecology | DX: N64.52 Nipple discharge (principal) | CPT/HCPCS: 99212 ==

== ENCOUNTER 2025-04-21 06:24 | Outpatient (REF) | payer OTHER, SELFPAY ==
[2025-04-21 06:59] LABS: Hematocrit 37.1 % (37.0-47.0); Hemoglobin 13.2 g/dl (12.0-16.0); Mean Corpuscular HGB Conc 35.6 g/dl (31.0-35.0); Mean Corpuscular Hemoglobin 31.7 pg (27.0-33.0); Mean Corpuscular Volume 89.0 fL (80.0-98.0); NRBC Abs Auto 0.000 X10*3/uL (0.0-0.012); NRBC Pct Auto 0.0 /100WBC (0.0-0.2); Platelet Count 324 X10*3/uL (160-400); Red Blood Count 4.17 X10*6/uL (4.20-5.50); White Blood Count 8.3 X10*3/uL (4.8-10.8)
[2025-04-21 07:32] LABS: Anion Gap 12 (12-20); Blood Urea Nitrogen 9 mg/dL (9-16); Calcium 8.9 mg/dL (8.4-10.2); Carbon Dioxide 25 mmol/L (22-29); Chloride 106 mmol/L (96-108); Cholesterol 162 mg/dL (<200); Estimated Glomerular Filt Rate > 60; HDL Cholesterol 48 mg/dL (>40); Potassium 3.3 mmol/L (3.3-5.1); Sodium 140 mmol/L (135-145); Triglycerides 136 mg/dL (<150)
[2025-04-21 07:33] LABS: Reflex LDLD? No
== END 2025-04-21 06:25 | disposition home or self-care (01) ==
LOC: HO.LAB 06:24
PROVIDERS: PCP Internal Medicine; Visit Provider Obstetrics & Gynecology
DX: N93.9 Abnormal uterine and vaginal bleeding, unspecified (principal); I10 Essential (primary) hypertension; Z32.02 Encounter for pregnancy test, result negative
CPT/HCPCS: 36415; 80048; 80061; 81025; 84443; 84702; 85027

== ENCOUNTER 2025-04-21 07:33 | Outpatient (AMB) | payer OTHER, SELFPAY ==
[2025-04-21 07:36] VITALS: BP 156/98; BMI 39.5
--- NOTE | 2025-04-21 07:36 | A.OFFVIS_ITS ---
Vital Signs 04/21/25 07:36 Height 5 ft 4 in Weight 230 lb BMI 39.5 BP 156/98 H Intake Visit Reasons: AUB Electronic Parts Designer Required: Yes Electronic Parts Designer Language: Hydrotechnical Specialist Services: Electronic Parts Designer Present (in person) Electronic Parts Designer Name: Cristin CALIX Information Interpreted: non-clinical & clinical Manager Strategy: Manager Strategy Present (Cristin CALIX) Accompanied by: Self / Same As Patient Allergies No Known Allergies (No Known Allergies*) Allergy (Verified 04/21/25 08:05) HPI Comments Details: Presenting complaining of irregular menstrual cycles associated with passage of blood clots. The patient has not on her menstrual cycle today H&H done today was 13.2/37.1 TSH pending HCG less than 2 Pelvic ultrasound ordered but not scheduled yet Last co testing in 01/26 was negative [facility] Medical History Personal history of COVID-19 COVID-19 vaccine series completed Dysplasia of cervix, low grade ([place] 1) Acid reflux Asthma Hypertension Surgical History Hx of appendectomy History of section Family History Maternal Grandmother HTN (hypertension) Diabetes Father HTN (hypertension) Mother HTN (hypertension) Social History Household Members Other:: daughter Housing: Apartment Alcohol intake: current Alcohol intake frequency: holidays/special occasions only Patient Tobacco Use Status: Former Tobacco user Current occupational status: employed 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 Sexual orientation: Straight/Heterosexual Gender identity: Female Female Reproductive History Menstrual Age of Menarche: 10 Review of Systems Const All systems reviewed & are unremarkable except as noted in HPI and below Physical Exam Vital Signs: Last Vital Signs BP 156/98 H 04/21/25 07:36 BMI result Body Mass Index 39.5 General: Yes no CVA tenderness External Female Exam: normal external appearance and normal appearance of the urethra Speculum Exam - Vagina: normal appearance of the vagina, normal palpation, no lesions and no masses Speculum Exam - Cervix: normal appearance of the cervix, normal palpation, no lesions, no masses and nontender Bimanual exam- vagina & uterus: normal bimanual exam, normal palpation, uterine size normal, normal palpation, uterine shape normal, No Cervical tenderness present and non-tender Bimanual Exam- Adnexa, other: normal adnexae Back/Spine/Pelvis Back: no CVA tenderness Results AMB Test Urine AMB Test Urine Negative Last Edit by Cristin Wall CMA on 08:08 Assessment & Plan Assessment & Plan (1) Abnormal uterine bleeding (AUB): Comment: With hirsutism, possible PCOS Code(s): N93.9 - Abnormal uterine and vaginal bleeding, unspecified Category: Medical Plan: GC and chlamydia taken CBC, TSH, HCG done, and pelvic ultrasound ordered. Discussed with the patient the different causes of abnormal bleeding including thyroid disorders, uterine and ovarian pathology, endometrial hyperplasia, carcinoma and other potential causes. Discussed with the patient the work up including CBC (anemia ruled out), TSH pending, pelvic Ultrasound, endometrial biopsy to r/o endometrial pathology. All questions answered and the patient verbalized understanding. Instructed the patient to schedule an appointment for an endometrial biopsy in 2 weeks. Orders: Orders AMB HCG Urine Test Today Z32.02 - Encounter for test, result negative Coding Level of Care Code Est Pt Level 3 (80935) Diagnoses Abnormal uterine bleeding (AUB) N93.9
== END 2025-04-21 08:13 | disposition home or self-care (01) ==
LOC: HO.HWS 07:33
PROVIDERS: PCP Internal Medicine; Visit Provider Obstetrics & Gynecology
DX: Z32.02 Encounter for pregnancy test, result negative (principal)

== ENCOUNTER 2025-04-21 08:51 | Outpatient (REF) | payer OTHER, SELFPAY ==
--- OUTSIDE RECORDS SUMMARY | 2025-04-21 08:54 | XMS_ITS | Encounter Summary ---
Author Organization [employer] Address [address] [place] [address] [address] [place] [address] Care Team Providers Care Tennis Racket Repairer Name Role Phone Maile Coy MD Primary Care Provider + Encounter Details Date Type Department Care Team ([facility] Contact Info) Description 03/27/2023 Orders Only [facility] [address] [place] [address] Ivett Rios LPN Social History Tobacco Use Types Packs/Day Years Used Date Smoking Tobacco: Never Smokeless Tobacco: Never Alcohol Use Standard Drinks/Week Comments Yes 0 (1 standard drink = 0.6 oz pur e alcohol) oca Depression Answer Date Recorded Patient Health Questionnaire-2 Score 0 01/28/2023 Comments Unknown Sex and Gender Information Value Date Recorded Sex Assigned at Female 08/04/2022 10:32 AM EDT Legal Sex Female 10:32 AM EDT Gender Identity Female 08/04/2022 10:32 AM EDT Sexual Orientation Straight 08/04/2022 10 :32 AM EDT COVID-19 Exposure Response Date Recorded In the last 10 days, have yo u been in contact with someone who was confirmed or suspected to have Coronavirus/COVID-19? No / Unsure 03/06/2023 10:27 AM EDT documented as of this encounter Plan of Treatment Upcoming Encounters Date Type Department Care Team (Late Contact Info) Description 05/11/2025 10:00 AM EDT Office Visit [facility] [address] [place], [place] [phone] Brandon, Janeth [address] [place], [place] [phone] 06/15/2025 11:15 AM EDT Office Visit [facility] MEDICINE [address] [place] [address] Maile Coy MD [address] [place] [address] documented as of this encounter Visit Diagnoses Not on filedocumented in this encounter Care Teams Tennis Racket Repairer Relationship Specialty Start Date End Date Maile Coy MD [address] [place] [id number] PCP - General Family Medicine 06/25/17 documented as of this encounter
[2025-04-21 13:20] LABS: CT PCR NOT DETECTED (Not Detect.); NG PCR NOT DETECTED (Not Detect.)
== END 2025-04-21 08:52 | disposition home or self-care (01) ==
LOC: HO.LNP 08:51
PROVIDERS: Visit Provider Obstetrics & Gynecology
DX: I10 Essential (primary) hypertension (principal); N93.9 Abnormal uterine and vaginal bleeding, unspecified; Z32.02 Encounter for pregnancy test, result negative
CPT/HCPCS: 87491; 87591

== ENCOUNTER 2025-07-14 09:54 | Outpatient (REF) | payer OTHER, SELFPAY ==
--- OUTSIDE RECORDS SUMMARY | 2025-07-12 11:30 | XMS_ITS | Encounter Summary ---
Author Organization [employer] Address [address] [place] [id number] Care Team Providers Care Agri Business Agent Name Role Phone Maile Coy MD Primary Care Provider + Reason for Referral * PFT (Routine) - Authorized Specialty Diagnoses / Procedures Referred By Contac t Referred To Contact Diagnoses Moderate persistent asthma with exacerbation Procedures Pulmonary Function Test Maile Coy MD [address] [place] [phone] Phone: tel: fax: [address] Phone: tel: fax: Referral ID Status Reason Start Date Expiration Date V isits Requested Visits Authorized [id number] Authorized 07/12/2025 07/12/2026 1 1 Encounter Details Date Type Department Care Team (Latest Contact Info) Description 07/12/2025 11:30 AM EDT Office Visit [facility] MEDICINE [address] [place] [phone] Maile Coy MD [address] [place] [phone] Class 2 severe obesity due to excess calories with serious comorbidity and body mass index (BMI) of 39.0 to 39.9 in adult (Primary Dx); Moderate persistent asthma with exacerbation; Primary osteoarthritis of both knees; PCOS (polycystic ovarian syndrome); Dietary counseling; Exercise counseling; Encounter for immunization Social History Tobacco Use Types Packs/Day Years Used Date Smoking Tobacco: Never Smokeless Tobacco: Never Alcohol Use Standard Drinks/Week Comments Not Currently 0 (1 standard drink = 0.6 oz pur e alcohol) oca Housing Stability Answer Date Recorded What is your housing situation today? I have nagi mott 03/30/[address] you li ve. Do you have problems with any of the following? None of the above 03/30/2025 Food Insecurity Answer Date Recorded Within the past 12 months, y ou worried that your food would run out before you got money to buy more: Never True 03/30/2025 Within the past 12 months,th e food you bought just didn't last and you didn't have enough money to get more: Never True Transportation Answer Date Recorded In the past 12 months, has l ack of transportation kept you from medical appts, meetings, work or from getting things needed for daily living? No 03/30/2025 Utilities Answer Date Recorded In the past 12 months, has t he electric, gas, oil or water company threatened to shut off services in your home? No 03/30/2025 Depression Answer Date Recorded Patient Health Questionnaire-2 Score 1 07/12/2025 Internet Access Answer Date Recorded Internet Access Q1 No 03/30/2025 Internet Access Q2 I do not want or need it 03/06 Comments No Sex and Gender Information Value Date Recorded Sex Assigned at Female 08/04/2022 10:32 AM EDT Legal Sex Female 10:32 AM EDT Gender Identity Female 08/04/2022 10:32 AM EDT Sexual Orientation Straight 08/04/2022 10 :32 AM EDT documented as of this encounter Last Filed Vital Signs Vital Sign Reading Time Taken Comments Blood Pressure 146/82 07/12/2025 11:51 AM EDT Pulse 72 07/12/2025 11:51 AM EDT Temperature 36.4 C (97.6 F) 07/12/2025 11:51 AM EDT Respiratory Rate 28 07/12/2025 11:51 AM EDT Oxygen Saturation - - Inhaled Oxygen Concentration - - Weight 108 kg (238 lb 3.2 oz) 07/12/2025 11:51 A M EDT Height 165.4 cm (5' 5.13 ) 07/12/2025 11:51 AM E DT Body Mass Index 39.48 07/12/2025 11:51 AM EDT documented in this encounter Functional Status * Over the past 2 weeks, how often have you been bothered by any of the following problems? Question Answer Date of Assessment Author Patient Health Questionnaire -2 Score 1 07/12/2025 11:58 AM EDT Arlene Hrarington MA * Little interest or pleasure in doing things Answer Date of Assessment Author Several days 07/12/2025 11:58 AM EDT Arlene Harrington MA * Feeling down, depressed, or hopeless Answer Date of Assessment Author Not at all 07/12/2025 11:58 AM EDT Arlene Harrington MA * Trouble falling or staying asleep, or sleeping too much Answer Date of Assessment Author Several days 07/12/2025 11:58 AM EDT Arlene Harrington MA * Feeling tired or having little energy Answer Date of Assessment Author Several days 07/12/2025 11:58 AM EDT Arlene Harrington MA * Feeling bad about yourself - or that you are a failure or have let yourself or your family down Answer Date of Assessment Author Not at all 07/12/2025 11:58 AM EDT Arlene Harrington MA * Moving or speaking so slowly that other people could have noticed? Or the opposite - being so fidgety or restless that you have been moving around a lot more than usual. Answer Date of Assessment Author Not at all 07/12/2025 11:58 AM EDT Arlene Harrington MA * Thoughts that you would be better off or hurting yourself in some way Answer Date of Assessment Author Not at all 07/12/2025 11:58 AM EDT Arlene Harrington MA * Over the last 2 weeks, how often have you been bothered by any of the following problems? Question Answer Date of Assessment Author Feeling nervous, anxious, or on edge 1 07/12/2025 11:58 AM EDT Arlene Harrington MA Not being able to stop or co ntrol worrying 0 07/12/2025 11:58 AM EDT Arlene Harrington MA Worrying too much about diff erent things 1 07/12/2025 11:58 AM EDT Arlene Harrington MA Trouble relaxing 1 07/12/2025 11:58 AM EDT Arlene Harrington MA Being so restless that it is hard to sit still 0 07/12/2025 11:58 AM EDT Arlene Harrington MA Becoming easily annoyed or irritable 1 07/12/2025 11:58 AM EDT Arlene Harrington MA Feeling afraid as if somethi ng awful might happen 0 07/12/2025 11:58 AM EDT Arlene Harrington MA LALA-7 Total Score 4 07/12/2025 11:58 AM EDT Arlene Harrington MA documented as of this encounter Progress Notes * Maile Coy MD - 07/12/2025 11:30 AM EDT SUBJECTIVE: Timothy Phelan is a 40 y.o. year old female who presents for follow up hypertension/asthma. Denies recent illness, injury, or hospitalization. Patient is doing better on Advair, her last asthma exacerbation was approximately a month ago and had a brief exacerbation 2 weeks ago that resolved with albuterol x 1 day. She is not taking Advair daily as she does not want to take the many medications. Her BP at home ranges anywhere between 130s to 140s over 80s, she is taking nifedipine and tolerates well, denies leg edema. She continues with bilateral, mostly right knee pain especially on ambulation and standing for longperiod of time. She never followed with physical therapy recommended last time.. LMP 07/01/25 Acute Concerns: Exacerbation of shortness of breath and cough x 2 days, she does not have any fever, chills or sorethroat. She had a URI last week x 2 days and resolved, she has been using other 2 or 3 times per week only and takes albuterol as needed (last time was 2 days ago), she does not want to take them anymedications. Social History Social History Narrative Not on file Problem List[1] Family History[2] Review of Systems Constitutional: Negative for chills, fatigue and fever. HENT: Negative for congestion, ear pain, nosebleeds, rhinorrhea, sinus pressure, sore throat and trouble swallowing. Eyes: Negative for pain and discharge. Respiratory: Positive for shortness of breath. Negative for cough and chest tightness. Cardiovascular: Negative for chest pain, palpitations and leg swelling. Gastrointestinal: Negative for abdominal pain, blood in stool, constipation, diarrhea and nausea. Endocrine: Negative for polydipsia and polyuria. Genitourinary: Negative for dysuria, frequency, genital sores, pelvic pain and vaginal discharge. Musculoskeletal: Positive for arthralgias and gait problem. Negative for back pain and neck pain. Skin: Negative for rash. Allergic/Immunologic: Negative for environmental allergies. Neurological: Negative for dizziness, seizures, weakness, light-headedness and headaches. Hematological: Negative for adenopathy. Psychiatric/Behavioral: Negative for agitation, behavioral problems, self-injury and suicidal ideas. OBJECTIVE: Vitals: 07/12/25 1151 BP: (!) 146/82 Pulse: 72 Resp: (!) 28 Temp: 97.6 ??F (36.4 ??C) Physical Exam HENT: Right Ear: Tympanic membrane and ear canal normal. Left Ear: Tympanic membrane and ear canal normal. Mouth/Throat: Mouth: Mucous membranes are moist. Pharynx: No oropharyngeal exudate or posterior oropharyngeal erythema. Eyes: Pupils: Pupils are equal, round, and reactive to light. Cardiovascular: Rate and Rhythm: Regular rhythm. Pulses: Normal pulses. Heart sounds: Normal heart sounds. No murmur heard. Pulmonary: Breath sounds: Examination of the right-upper field reveals wheezing. Examination of the left-upperfield reveals wheezing. Examination of the right- middle field reveals wheezing. Examination of the left-middle field reveals wheezing. Wheezing present. Abdominal: General: Bowel sounds are normal. Palpations: Abdomen is soft. Tenderness: There is no abdominal tenderness. Musculoskeletal: General: Normal range of motion. Cervical back: Neck supple. Right knee: Crepitus present. Tenderness present over the medial joint line, lateral joint line andpatellar tendon. Left knee: Crepitus present. Skin: General: Skin is warm. Neurological: General: No focal deficit present. Mental Status: She is alert and oriented to person, place, and time. Psychiatric: Mood and Affect: Mood normal. Behavior: Behavior normal. Problem List Items Addressed This Visit Class 2 severe obesity due to excess calories with serious comorbidity and body mass index (BMI) of39.0 to 39.9 in adult - Primary Discussed re weight reduction options including exercise, life style modifications, diet. She will continue to see dietitian Recommended to decrease soda and sugary beverage consumption, increase protein intake with meals (at least 1 portion of protein with each meal) to assist with satiety, increase dietary fiber Recommended at least 150 min/week of moderate intensity exercise. Will start metformin at this time given history of PCOS and desire for . We discussed regarding side effects of the medication including abdominal pain, distention, diarrhea, nausea, headache. I will follow-up in 4 to 6 weeks to assess tolerance and adjust as needed. Relevant Medications metFORMIN XR (Glucophage-XR) 500 MG 24 hr tablet predniSONE (Deltasone) tablet 40 mg (Completed) Moderate persistent asthma with exacerbation Most likely triggered by last week's URI, will give albuterol updraft for last PRD 40 mg today. Advised to use Advair twice daily on a regular basis, not as needed. We discussed importance of medication compliance in order to in optimize Rx. Use albuterol every 6 hours for the next 5 days and then as needed Will continue to work on weight reduction Order PFTs and follow-up with me in 2 months, will consider referral to pulmonology. She had influenza and PCV 20 immunization today Relevant Medications Fluticasone-Salmeterol (Advair Diskus) 250-50 MCG/ACT aerosol powder albuterol (2.5 MG/3ML) 0.083% nebulizer solution 2.5 mg (Completed) predniSONE (Deltasone) tablet 40 mg (Completed) Other Relevant Orders Pulmonary Function Test Primary osteoarthritis of both knees I have been addressed at last visit, I gave patient information regarding PT for her to schedule appointment. Continue meloxicam and Tylenol as needed Will continue to address weight reduction Will repeat x-ray of the knee at patient's request, I will call her back if there is any finding different than OA that was previously seen on last x-ray. Relevant Medications predniSONE (Deltasone) tablet 40 mg (Completed) meloxicam (Mobic) 15 MG tablet Other Relevant Orders XR Knee 3 Views Right PCOS (polycystic ovarian syndrome) Seen by SKATES OPERATOR, she desires Relevant Medications metFORMIN XR (Glucophage-XR) 500 MG 24 hr tablet predniSONE (Deltasone) tablet 40 mg (Completed) Dietary counseling Relevant Medications metFORMIN XR (Glucophage-XR) 500 MG 24 hr tablet predniSONE (Deltasone) tablet 40 mg (Completed) Exercise counseling Relevant Medications metFORMIN XR (Glucophage-XR) 500 MG 24 hr tablet predniSONE (Deltasone) tablet 40 mg (Completed) Other Visit Diagnoses Encounter for immunization Relevant Orders FLU VACCINE TRIVALENT [id number] (Fluarix) 19 yrs + (Completed) PCV-20 VACCINE 6 wks + (Completed) Follow Up: Medications Ordered Prior to Encounter[3] [1] Patient Active Problem List Diagnosis Knee pain Pain in wrist Essential hypertension Cyst of meniscus of right knee Carpal tunnel syndrome Arthritis of knee Secondary female infertility PCOS (polycystic ovarian syndrome) Obstructive sleep apnea syndrome Class 2 severe obesity due to excess calories with serious comorbidity and body mass index (BMI) of39.0 to 39.9 in adult Moderate persistent asthma without complication Hand pain Dietary counseling Exercise counseling Dental plaque Acute gingival inflammation Dental calculus Amenorrhea Allergic conjunctivitis of both eyes and rhinitis Primary osteoarthritis of both knees Gingival bleeding Gingivitis Tongue coating Moderate persistent asthma with exacerbation [2] No family history on file. [3] Current Outpatient Medications on File Prior to Visit Medication Sig Dispense Refill acetaminophen (Tylenol 8 Hour) 650 MG ER tablet Take 1 tablet (650 mg) by mouth every 8 (eight) hours if needed for moderate pain or mild pain. Do not crush, chew, or split. 90 tablet 0 albuterol (2.5 MG/3ML) 0.083% nebulizer solution INHALE 1 VIAL VIA NEBULIZER 6 TIMES A DAY NEEDED FOR SHORTNESS OF BREATH OR ASTHMA NEEDED 75 mL 3 albuterol (Ventolin HFA) 108 (90 Base) MCG/ACT inhaler TAKE 2 PUFFS BY MOUTH EVERY 4 TO 6 HOURS NEEDED 18 g 1 cetirizine (ZyrTEC) 10 MG tablet Take 1 tablet (10 mg) by mouth Once per day. 90 tablet 3 fluticasone (Flonase) 50 MCG/ACT nasal spray SPRAY 1 - 2 SPRAY BY INTRANASAL ROUTE EVERY DAY IN EACH NOSTRIL NEEDED 48 mL 1 NIFEdipine XL (Procardia XL) 90 MG 24 hr tablet Take 1 tablet (90 mg) by mouth Once per day. Do notcrush, chew, or split. 30 tablet 11 [DISCONTINUED] Fluticasone-Salmeterol (Advair Diskus) 250-50 MCG/ACT aerosol powder Inhale 1 puff 2times daily. INHALE 1 PUFF 2 TIMES DAILY. STOP FLOVENT. 60 each 3 [DISCONTINUED] ibuprofen 800 MG tablet TAKE 1 TABLET BY MOUTH THREE TIMES A DAY WITH FOOD 30 tablet1 [DISCONTINUED] meloxicam (Mobic) 15 MG tablet Take 1 tablet (15 mg) by mouth Once per day. 30 tablet 0 No current facility-administered medications on file prior to visit. documented in this encounter Miscellaneous Notes * Assessment & Plan Note - Maile Coy MD - 07/12/2025 2:27 PM EDT Associated Problem(s): Moderate persistent asthma with exacerbation Most likely triggered by last week's URI, will give albuterol updraft for last PRD 40 mg today. Advised to use Advair twice daily on a regular basis, not as needed. We discussed importance of medication compliance in order to in optimize Rx. Use albuterol every 6 hours for the next 5 days and then as needed Will continue to work on weight reduction Order PFTs and follow-up with me in 2 months, will consider referral to pulmonology. She had influenza and PCV 20 immunization today * Assessment & Plan Note - Maile Coy MD - 07/12/2025 2:24 PM EDT Associated Problem(s): Primary osteoarthritis of both knees I have been addressed at last visit, I gave patient information regarding PT for her to schedule appointment. Continue meloxicam and Tylenol as needed Will continue to address weight reduction Will repeat x-ray of the knee at patient's request, I will call her back if there is any finding different than OA that was previously seen on last x-ray. * Assessment & Plan Note - Maile Coy MD - 07/12/2025 2:23 PM EDT Associated Problem(s): Class 2 severe obesity due to excess calories with serious comorbidity and body mass index (BMI) of 39.0 to 39.9 in adult Discussed re weight reduction options including exercise, life style modifications, diet. She will continue to see dietitian Recommended to decrease soda and sugary beverage consumption, increase protein intake with meals (at least 1 portion of protein with each meal) to assist with satiety, increase dietary fiber Recommended at least 150 min/week of moderate intensity exercise. Will start metformin at this time given history of PCOS and desire for . We discussed regarding side effects of the medication including abdominal pain, distention, diarrhea, nausea, headache. I will follow-up in 4 to 6 weeks to assess tolerance and adjust as needed. * Assessment & Plan Note - Maile Coy MD - 07/12/2025 2:21 PM EDT Associated Problem(s): PCOS (polycystic ovarian syndrome) Seen by SKATES OPERATOR, she desires documented in this encounter Plan of Treatment Upcoming Encounters Date Type Department Care Team (Late st Contact Info) Description 07/18/2025 3:30 PM EDT Clinical Support [facility] DIABETES/NUTRITION [address] [place] [address] Mariana Echavarria, GIACOMO [address] [place] [address] 09/18/2025 11:15 AM EST Office Visit [facility] MEDICINE [address] [place] [address] Maile Coy MD [address] [place] [address] Scheduled Orders Name Type Priority Associated Diagnoses Orde r Schedule Pulmonary Function Test PFT Routine Moderate persistent asthma with exacerbation Expected: 08/12/2025, Expires: 01/10/2026 documented as of this encounter Procedures Procedure Name Priority Date/Time Associated Diagnosis Comments XR KNEE 3 VIEWS RIGHT Routine 07/14/2025 10:25 AM EDT Primary osteoarthritis of both knees documented in this encounter Results * XR Knee 3 Views Right (07/14/2025 10:25 AM EDT) Anatomical Region Laterality Modality Lower Extremities, Knee Right Radiogra phic Imaging 07/14/2025 10:2 5 AM EDT Narrative 07/14/2025 10:40 AM EDT [address] [address] XRay Report Signed Patient: Timothy Phelan MR#: [id number] : 1985 Acct:[id number] Age/Sex: 40 / F ADM Date: 07/14/25 Loc: . Attending Dr: Jack Justin MD Ordering Physician: Maile Coy MD Date of Service: 07/14/25 Procedure(s): XR knee RT 3V Accession Number(s): [id number] cc: Maile Coy MD Reason for Exam: right knee OA EXAMINATION: XR KNEE, RIGHT CLINICAL INFORMATION: right knee OA COMPARISON: 07/12/2020. TECHNIQUE: Three views of the right knee. FINDINGS: No fracture, dislocation, or suspicious bone lesion. Normal bone mineralization. Normal alignment. There is very mild medial compartment joint space narrowing. The lateral and patellofemoral compartments appear normal/preserved. Minimal spurring of the medial tibial spine. No significant joint effusion. Soft tissues appear normal. XR/XR knee RT 3V IMPRESSION: 1. No acute bony or soft tissue abnormality. No joint effusion. 2. Very mild medial compartment osteoarthrosis. Electronically signed by: Amilcar Diaz MD 07/14/2025 10:37 AM EDT Dictated By: Amilcar Diaz MD Signed By: <Electronically signed by Amilcar Diaz MD in OV> 07/14/25 1037 DD/ 1025 TD/TT: 07/14/25 1033 Radio Officer: Procedure Note Donotuseinterpreter, Image - 07/14/[address] [address] XRay Report Signed Patient: Tiffany Phelan#: [id number] : 1985Acct:[id number] Age/Sex: 40 / FADM Date: 07/14/25 Loc: . Attending Dr: Jack Justin MD Ordering Physician: Maile Coy MD Date of Service: 07/14/25 Procedure(s): XR knee RT 3V Accession Number(s): [id number] cc: Maile Coy MD Reason for Exam: right knee OA EXAMINATION: XR KNEE, RIGHT CLINICAL INFORMATION: right knee OA COMPARISON: 07/12/2020. TECHNIQUE: Three views of the right knee. FINDINGS: No fracture, dislocation, or suspicious bone lesion. Normal bone mineralization. Normal alignment. There is very mild medial compartment joint space narrowing. The lateral and patellofemoral compartments appear normal/preserved. Minimal spurring of the medial tibial spine. No significant joint effusion. Soft tissues appear normal. XR/XR knee RT 3V IMPRESSION: 1. No acute bony or soft tissue abnormality. No joint effusion. 2. Very mild medial compartment osteoarthrosis. Electronically signed by: Amilcar Diaz MD 07/14/2025 10:37 AM EDT Dictated By: Amilcar Diaz MD Signed By: <Electronically signed by Amilcar Diaz MD in OV> 07/14/25 1037 DD/ 1025 TD/TT: 07/14/25 1033 Radio Officer: Maile Coy MD IMG XR PROCEDURES Final Result documented in this encounter Visit Diagnoses Diagnosis Class 2 severe obesity due to excess calories with serious comorbidity and body mass index (BMI) of 39.0 to 39.9 in adult- Primary Moderate persistent asthma with exacerbation Unspecified asthma, with exacerbation Primary osteoarthritis of both knees PCOS (polycystic ovarian syndrome) Polycystic ovaries Dietary counseling Dietary surveillance and counseling Exercise counseling Encounter for immunization documented in this encounter Administered Medications Inactive Administered Medications - up to 3 most recent administrations Medication Order MAR Action Action Date Dose Rate Site albuterol (2.5 MG/3ML) 0.083% nebulizer solution 2.5 mg 2.5 mg, Nebulization, Once, On Thu07/12/25 at 1230, For 1 doseIndications:Moderate persistent asthma with exacerbation Given 07/12/2025 12:30 PM EDT 2.5 mg predniSONE (Deltasone) tablet 40 mg 40 mg, Oral, Once, On Thu07/12/25 at 1230, For 1 doseIndications:Moderate persistent asthma with exacerbation Given 07/12/2025 12:30 PM EDT 40 mg documented in this encounter Care Teams Agri Business Agent Relationship Specialty Start Date End Date Maile Coy MD [address] [place] [phone] PCP - General Family Medicine 06/25/17 documented as of this encounter
--- NOTE | ~2025-07-14 | XR_ITS ---
EXAMINATION: XR KNEE, RIGHT CLINICAL INFORMATION: right knee OA COMPARISON: 07/12/2020. TECHNIQUE: Three views of the right knee. FINDINGS: No fracture, dislocation, or suspicious bone lesion. Normal bone mineralization. Normal alignment. There is very mild medial compartment joint space narrowing. The lateral and patellofemoral compartments appear normal/preserved. Minimal spurring of the medial tibial spine. No significant joint effusion. Soft tissues appear normal. XR/XR knee RT 3V IMPRESSION: 1. No acute bony or soft tissue abnormality. No joint effusion. 2. Very mild medial compartment osteoarthrosis. Electronically signed by: Amilcar Diaz MD 07/14/2025 10:37 AM EDT
--- NOTE | ~2025-07-14 | US_ITS ---
EXAMINATION: US PELVIS CLINICAL INFORMATION: Abnormal uterine and vaginal bleeding. LMP = 07/01/2025. COMPARISON: 09/17/2021. TECHNIQUE: Ultrasound of the pelvis is performed using both transabdominal and transvaginal transducers along with Doppler. Transvaginal imaging is performed due to inadequate visualization transabdominally. FINDINGS: Uterus: The uterus is anteverted, anteflexed and measures 8.8 x 4.6 x 5.9 cm. The cervix appears normal sonographically, with small nabothian cysts present. The double wall endometrial thickness is 11 mm. It is uniform without irregularity. The uterus is smooth in contour and has normal myometrial echogenicity. No visible fibroid. Adnexa: Both ovaries are visualized. There is normal color flow to the adnexa. There is no ovarian torsion. There is no pelvic ascites or fluid collection. There are no adnexal masses. Right ovary measures 3.5 x 2.9 x 3.8 cm. Volume = 20.3 mL. Normal sonographic appearance. Left ovary measures 3.4 x 2.3 x 2.6 cm. Volume = 10.7 mL. Normal sonographic appearance. US/US pelvic and transvaginal IMPRESSION: Normal pelvic ultrasound. Electronically signed by: Amilcar Diaz MD 07/14/2025 02:31 PM EDT
--- OUTSIDE RECORDS SUMMARY | 2025-07-14 10:47 | XMS_ITS | Encounter Summary ---
Author Organization [employer] Address [address] [facility] [address] [place] [address] Care Team Providers Care Boring Machine Operator Vertical Name Role Phone Maile Coy MD Primary Care Provider + Encounter Details Date Type Department Care Team ([facility] Contact Info) Description 03/27/2023 Orders Only [facility] MED & PEDS [address] [place], [place] [phone] Ivett Rios LPN Social History Tobacco Use [...] Upcoming Encounters Date Type Department Care Team ([facility] Contact Info) Description 07/18/2025 3:30 PM EDT Clinical Support [facility] DIABETES/NUTRITION [address] [place] [address] [place] [address] 09/18/2025 11:15 AM EST Office Visit [facility] MEDICINE [address] [place], [place] [phone] Maile Coy MD [address] [place] [address] documented as of this encounter Visit Diagnoses Not on filedocumented in this encounter Care Teams Boring Machine Operator Vertical Relationship Specialty Start Date End Date Maile Coy MD [address] [place], [place] [phone] PCP - General Family Medicine 06/25/17 documented as of this encounter
--- OUTSIDE RECORDS SUMMARY | 2025-07-14 10:47 | XMS_ITS | Clinical Summary ---
Author Organization [employer] Address [address] [facility] 7 [place] [address] Care Team Providers Care Asphalt Coater Name Role Phone Maile Coy MD Primary Care Provider + Allergies No known active allergies Medications fluticasone (Flonase) 50 MCG/ACT nasal sprayIndication s:Acute recurrent frontal sinusitis SPRAY 1 - 2 SPRAY BY INTRANASAL ROUTE EVERY DAY IN EACH NOSTRIL NEEDED 48 mL 1 01/25/20 24 Active albuterol (2.5 MG/3ML) 0.083% nebulizer solutionIndicat ions:Mild persistent asthma without complication INHALE 1 VIAL VIA NEBULIZER 6 TIMES A DAY NEEDED FOR SHORTNESS OF BREATH OR ASTHMA NEEDED 75 mL 3 12/08/19 25 Active NIFEdipine XL (Procardia XL) 90 MG 24 hr tablet Take 1 tablet (90 mg) by mouth Once per day. Do not crush, chew, or split. 30 tablet 11 03/30/20 25 026 Active albuterol (Ventolin HFA) 108 (90 Base) MCG/ACT inhalerIndicati ons:Moderate persistent asthma without complication TAKE 2 PUFFS BY MOUTH EVERY 4 TO 6 HOURS NEEDED 18 g 1 03/30/20 25 Active cetirizine (ZyrTEC) 10 MG tablet Take 1 tablet (10 mg) by mouth Once per day. 90 tablet 3 03/30/20 25 Active acetaminophen (Tylenol 8 Hour) 650 MG ER tablet Take 1 tablet (650 mg) by mouth every 8 (eight) hours if needed for moderate pain or mild pain. Do not crush, chew, or split. 90 tablet 03/30/20 25 Active metFORMIN XR (Glucophage-XR) 500 MG 24 hr tablet Take 1 tablet (500 mg) by mouth with evening meal. Do not crush, chew, or split. 30 tablet 11 07/12/20 25 Active Fluticasone-Afshin meterol (Advair Diskus) 250-50 MCG/ACT aerosol powderIndicatio ns:Moderate persistent asthma with exacerbation Inhale 1 puff 2 times daily. INHALE 1 PUFF 2 TIMES DAILY. STOP FLOVENT. 60 each 11 07/12/20 25 Active meloxicam (Mobic) 15 MG tablet Take 1 tablet (15 mg) by mouth Once per day. 30 tablet 07/12/20 25 Active ibuprofen 800 MG tabletIndicatio ns:Chronic knee pain, unspecified laterality TAKE 1 TABLET BY MOUTH THREE TIMES A DAY WITH FOOD 30 tablet 1 08/25/20 23 Discontinued(I neffective) Fluticasone-Afshin meterol (Advair Diskus) 250-50 MCG/ACT aerosol powderIndicatio ns:Moderate persistent asthma without complication Inhale 1 puff 2 times daily. INHALE 1 PUFF 2 TIMES DAILY. STOP FLOVENT. 60 each 3 03/30/20 25 025 Discontinued(R eorder (will not trigger notification to Pharmacy)) meloxicam (Mobic) 15 MG tablet Take 1 tablet (15 mg) by mouth Once per day. 30 tablet 03/30/20 025 Discontinued(R eorder (will not trigger notification to Pharmacy)) Hospital, Clinic, or Other Facility Administered Medication Ordered Dose Route Frequency Start Date End Date Status albuterol (2.5 MG/3ML) 0.083% nebulizer solution 2.5 mgIndications:Modera te persistent asthma with exacerbation 2.5 mg NEBULIZATION Once 07/12/2025 07/12/2025 Ended predniSONE (Deltasone) tablet 40 mgIndications:Modera te persistent asthma with exacerbation 40 mg PO Once 07/12/2025 07/12/2025 Ended Active Problems Problem Noted Date Diagnosed Date Moderate persistent asthma with exacerbation 05/2025 Assessment & Plan (07/12/2025 2:27 PM EDT): Most likely triggered by last week's URI, [...] had influenza and PCV 20 immunization today Gingival bleeding 05/11/2025 Gingivitis 05/11/2025 Tongue coating 05/11/2025 Amenorrhea 05/19/2024 Assessment & Plan (05/19/2024 2:44 PM EDT): Urine HCGs was negative today. Repeat HCG within 1 week if she continues to have amenorrhea. Advised to follow up with DESIGNER WRITER, she may need to have PCOS treated. Allergic conjunctivitis of both eyes and rhiniti s 05/19/2024 Assessment & Plan (05/19/2024 2:44 PM EDT): Use Ketotifen eye drops, continue Zyrtec and Flonase. Dental calculus 04/13/2024 Dental plaque 02/15/2024 Acute gingival inflammation 02/15/2024 Dietary counseling 03/06/2023 Exercise counseling 03/06/2023 Hand pain 03/05/2023 Moderate persistent asthma without complication 01/28/2023 Assessment & Plan (03/30/2025 9:30 AM EDT): Uncontrolled as patient is out of Advair as she is unable to afford it. I sent Advair twice daily to our pharmacy and her copayment is $10 per month which she can afford. Continue albuterol as needed and follow-up with me in 2 or 3 months. She is off Singulair for now, will follow-up in 3 months to see if she needs it Assessment & Plan (03/25/2024 9:16 AM EDT): Doing fairly well. Reminded her re taking advair bid DAILY , albuterol prn only Continue Singulair Assessment & Plan (03/06/2023 11:17 AM EDT): Significantly improved on Advair 250 + Singulair. No change in medications, continue Pro Air PRN only. Assessment & Plan (01/28/2023 10:58 AM EDT): exacerbated s/p covid two months ago dc flovent and start advair BID Use proair q6 hours for the next two days and then PRN Start singulair treat allergies Knee pain 01/23/2023 Cyst of meniscus of right knee 01/23/2023 Arthritis of knee 01/23/2023 Secondary female infertility 01/23/2023 Primary osteoarthritis of both knees 01/23/2023 Assessment & Plan (07/12/2025 2:24 PM EDT): I have been addressed at last visit, I gave patient information regarding PT for her to schedule appointment. Continue meloxicam and Tylenol as needed Will continue to address weight reduction Will repeat x-ray of the knee at patient's request, I will call her back if there is any finding different than OA that was previously seen on last x-ray. Assessment & Plan (03/30/2025 9:29 AM EDT): She has previous x-rays showing OA of both knees. She agreed to start PT, will start meloxicam daily for 1 or 2 weeks and Tylenol as needed pain. We discussed about weight reduction and exercise. Follow-up with me in 3 months Obstructive sleep apnea syndrome 02/11/2019 Overview (03/06/2023): Sleep study on 03/2022 ([facility] hta) : Mild ALBERTO (AHI was 30) Recc Auto CPAP 5-20 cm H2O. She declined to use CPAP Assessment & Plan (03/25/2024 9:10 AM EDT): Never got the machine, not interested in using it. Assessment & Plan (03/06/2023 11:15 AM EDT): She had a sleep study on March 2022 consistent of mild ALBERTO and Oral CPAP was recommended. Pt does not want to use CPAP at this time Discussed with pt about consequences of untreated ALBERTO She wants to lose weight gave her information about weight reduction programs FU at next appointment Carpal tunnel syndrome 06/24/2018 Pain in wrist 12/22/2017 Essential hypertension 07/06/2017 Assessment & Plan (03/30/2025 9:31 AM EDT): Uncontrolled. I will increase nifedipine to 90 mg and follow-up BP with RN in 2 to 3 weeks and with me in 6 to 8 weeks Counseled re low salt diet/increase moderate physical activity, will refer to dietitian. Check home BP BIW and prn CP/GIRON/MICHELLE Non smoking patient. Assessment & Plan (05/19/2024 2:43 PM EDT): Controlled. Compliant w/meds. Continue Nifedipine 60 mg. Counseled re low salt diet/increase moderate physical activity. Check home BP BIW and prn CP/GIRON/MICHELLE Non smoking patient. Assessment & Plan (03/25/2024 9:17 AM EDT): Uncontrolled, Order labs and fu with me in 6w Reminded her re weight reduction, check BP three times per week and bring BP readings, decrease Salt intake and fast food. Reminded her to walk daily for at least 20min/brisk walk. Assessment & Plan (04/13/2023 9:12 AM EDT): It seems to be better controlled, Continue Nifedipine XL 60 mg/d Order labs and fu w me in 4m Counseled re low salt diet/increase moderate physical activity. Check home BP BIW and prn CP/GIRON/MICHELLE Non smoking patient. Assessment & Plan (03/06/2023 11:15 AM EDT): Stage 1/borderline controlled Continue nifedipine 60 mg and check BP at home twice per week FU with me in 6 weeks Counseled re low salt diet/increase moderate physical activity. Check home BP BIW and prn CP/GIRON/MICHELLE Non smoking patient. Assessment & Plan (01/28/2023 10:59 AM EDT): elevated today seems to be controlled at home will treat acute asthma exacerbation and fu bp in 1-2 months will continue checking BP at home Continue nifedipine XL 60 Counseled re low salt diet/increase moderate physical activity. Check home BP BIW and prn CP/GIRON/MICHELLE Non smoking patient. PCOS (polycystic ovarian syndrome) 07/06/2017 Assessment & Plan (07/12/2025 2:21 PM EDT): Seen by DESIGNER WRITER, she desires Class 2 severe obesity due t o excess calories with serious comorbidity and body mass index (BMI) of 39.0 to 39.9 in adult 07/06/2017 Assessment & Plan (07/12/2025 2:23 PM EDT): Discussed re weight reduction options including exercise, [...] to assess tolerance and adjust as needed. Assessment & Plan (03/30/2025 9:28 AM EDT): Discussed re weight reduction options including exercise, life style modifications, diet, referral to adoption specialist, patient states that she eats 1 and maximum 2 meals per day. Discussed re lower calorie intake, increase dietary fiber, reminded her to call to [facility] weight management program, she has info r with her. We discussed about medication management including oral and injectables, she agreed to start seeing dietitian and I will follow-up with her at next appointment, if she is ready, I will start with meds. FU in 3m Assessment & Plan (04/13/2023 9:13 AM EDT): Discussed re weight reduction options including exercise, life style modifications, diet, referral to adoption specialist. Discussed re lower calorie intake, increase dietary fiber, reminded her to call to [facility] weight management program, she has info r with her. FU in 4m Assessment & Plan (03/06/2023 11:14 AM EDT): Discussed re weight reduction options including exercise, life style modifications, diet, referral to adoption specialist. Discussed re lower calorie intake, increase dietary fiber I gave her informaiton about [facility] and [facility] weight reduction program so she can go to informative sessions FU in 2-3 months Resolved Problems Problem Noted Date Diagnosed Date Resolved Date Asthma 03/30/2025 03/30/2025 Gingival bleeding 02/15/2024 05/19/2024 Elevated blood pressure read ing with diagnosis of hypertension 01/23/2023 05/19/2024 Community acquired pneumonia 01/23/2023 05/19/2024 Acute frontal sinusitis 01/23/2023 0802/2024 Assessment & Plan (01/28/2023 10:57 AM EDT): nasal saline + restart flonase + singulair Can take Tylenol PRN and FU with me PRN Obesity (BMI 30.0-34.9) 01/23/2023 06/0 11/2022 Mild intermittent asthma 07/06/2017 Pain in female pelvis 07/06/20172023 Encounters Date Type Department Care Team Description 07/12/2025 11:30 AM EDT Office Visit [facility] [address] [place] [phone] Maile Coy MD Class 2 severe obesity due to excess calories with serious comorbidity and body mass index (BMI) of 39.0 to 39.9 in adult (Primary Dx); Moderate persistent asthma with exacerbation; Primary osteoarthritis of both knees; PCOS (polycystic ovarian syndrome); Dietary counseling; Exercise counseling; Encounter for immunization 07/12/2025 Travel 07/11/2025 Telephone [facility] [address] [place] [address] Maile Coy MD chart prep 06/20/2025 11:00 AM EDT Nutrition [facility] [address] [place] [address] Class 2 severe obesity due to excess calories with serious comorbidity and body mass index (BMI) of 36.0 to 36.9 in adult ([facility]) 06/20/2025 Travel 05/19/2025 Telephone [facility] [address] [place] [address] Maile Coy MD Referral 05/11/2025 10:00 AM EDT Office Visit [facility] [address] [place] [address] Brandon Janeth Gingival bleeding (Primary Dx); Dental calculus; Gingivitis; Tongue coating 04/22/2025 Refill [facility] [address] [place] [address] Maile Coy MD Moderate persistent asthma without complication; Acute recurrent frontal sinusitis 04/21/2025 Orders Only GENERIC EXTERNAL DATA DEPARTMENT Provider, Generic External Data 04/20/2025 11:30 AM EDT Clinical Support [facility] [address] [place] [address] Mariya Riggs RN Essential hypertension [I10] 04/20/2025 Travel from Last 3 Months Immunizations Immunization Administration Dates Next Due Hep B, adult 10/02/2017 Influenza Injectable Quadriv alant Preservative Free IIV4 MDCK 07/14/2023 Influenza injectable quadriv alent IIV4 with preservative 06/17/2019,06/24/2018,07/06/2017 Influenza injectable quadriv alent preservative free 09/09/2021,07/06/2020 Influenza, seasonal, injecta ble, preservative free 07/12/2025,10/04/2024 MMR 10/02/2017 Pfizer Covid-19 Vaccine 12+ 10/04/2024 Pneumococcal Conjugate PCV 20 07/12/2025 Tdap 09/21/2017 Varicella 10/02/2017 Social History Tobacco Use Types Packs/Day Years Used Date Smoking Tobacco: Never Smokeless Tobacco: Never Tobacco Cessation:Counseling Given: Not Answered Alcohol Use Standard Drinks/Week Comments Not Currently [...] Orientation Straight 08/04/2022 10 :32 AM EDT Last Filed Vital Signs Vital Sign Reading Time Taken Comments Blood Pressure 146/82 07/12/2025 11:51 AM EDT Pulse 72 07/12/2025 11:51 AM EDT Temperature 36.4 C (97.6 F) 07/12/2025 11:51 AM EDT Respiratory Rate 28 07/12/2025 11:51 AM EDT Oxygen Saturation 95% 04/20/2025 11:56 AM EDT Inhaled Oxygen Concentration - - Weight 108 kg (238 lb 3.2 oz) 07/12/2025 11:51 A M EDT Height 165.4 cm (5' 5.13 ) 07/12/2025 11:51 AM E DT Body Mass Index 39.48 07/12/2025 11:51 AM EDT Plan of Treatment Upcoming Encounters Date Type Department Care Team (Late st Contact Info) Description 07/18/2025 3:30 PM EDT Clinical Support [facility] [address] [place] [address] [place] [address] 09/18/2025 11:15 AM EST Office Visit [facility] [address] [place] [address] Maile Coy MD [address] [place], [place] [phone] Health Maintenance Due Date Last Done Comments Family Planning (PISQ) 2001 HPV Vaccines (1 - 3-dose series) 2001 Hepatitis B Vaccines (2 of 3 - 19+ 3-dose series) 10/30/2017 10/02/2017 Dental Oral Exam 11/12/2025 05/11/2025, , 07/16/2021, Additional history exists Dental Prophylaxis 11/12/2025 05/11/2025, 0 11/09/2024, 02/15/2024, Additional history exists Alcohol/Substance Use Screening 03/30/2026 03/30/2025 Disability Screening 03/30/2026 03/30/2025 SDOH Screening 03/30/2026 03/30/2025 Dental X-Ray: Bitewings 05/12/2026 05/11/20 25, 02/15/2024, 05/31/2021, Additional history exists Depression Screening 07/12/2026 07/12/2025, 07/12/20 Tobacco Screening 07/12/2026 07/12/2025 Pap Smear 01/26/2027 01/27/2024, 10/05, 08/28/2021 DTaP/Tdap/Td Vaccines (2 - Td or Tdap) 09/21/2027 09/21/2017 Cervical Cancer Screening 10/14/2027 HPV/Cotest 10/14/2027 10/14/2022, 08/06, 08/28/2021 Dental X-Ray: Full Mouth 05/12/2028 025, 05/31/2021, 08/17/2017 Lipid Panel 04/21/2030 04/21/2025, 08/05/2024, 07/07/2022, Additional history exists Zoster Vaccines (1 of 2) 01/18/2036 RSV Patients and Patients Aged 60 years or older (1 - 1-dose 75+ series) 2061 HIV Screening Completed 02/27/2021 Hepatitis C Screening Completed 02/27/2021 COVID-19 Vaccine Completed 10/04/2024, 03/2021, 03/06/2021, Additional history exists Influenza Vaccine Completed 07/12/2025, , 07/14/2023, Additional history exists Pneumococcal Vaccine: Pediatrics (0 to 5 Years) and At-Risk Patients (6 to 49) Years Completed 07/12/2025 HIB Vaccines Aged Out No longer eligi ble based on patient's age to complete this topic Hepatitis A Vaccines Aged Out No long er eligible based on patient's age to complete this topic IPV Vaccines Aged Out No longer eligi ble based on patient's age to complete this topic Meningococcal B Vaccine Aged Out No l onger eligible based on patient's age to complete this topic Meningococcal Vaccine Aged Out No sophie sonya eligible based on patient's age to complete this topic RSV under 20 months Aged Out No longe r eligible based on patient's age to complete this topic Rotavirus Vaccines Aged Out No longer eligible based on patient's age to complete this topic Procedures Procedure Name Priority Date/Time Associated Diagnosis Comments XR KNEE 3 VIEWS RIGHT Routine 07/14/2025 10:25 AM EDT Primary osteoarthritis of both knees PERIODIC ORAL EVALUATION - ESTABLISHED PATIENT Routine 05/11/2025 10:00 AM EDT CASE PRESENTATION, DETAILED AND EXTENSIVE TREATMENT PLANNING Routine 05/11/2025 10:00 AM EDT Gingival bleeding Dental calculus ORAL HYGIENE INSTRUCTIONS Routine 05/11/2025 10:00 AM EDT Gingival bleeding Dental calculus PROPHYLAXIS - ADULT Routine 05/11/2025 1 0:00 AM EDT Gingival bleeding Dental calculus INTRAORAL - COMPLETE SERIES OF RADIOGRAPHIC IMAGES Routine 05/11/2025 10:00 AM EDT Gingival bleeding Dental calculus HCG, TOTAL, QN Routine 04/21/2025 6:43 AM EDT CBC Routine 04/21/2025 6:43 AM EDT LIPID PANEL WITH REFLEX TO DIRECT LDL Routine 04/21/2025 6:43 AM EDT Essential hypertension TSH W/REFLEX TO FT4 Routine 04/21/2025 6 :43 AM EDT Essential hypertension BASIC METABOLIC PANEL Routine 04/21/2025 6:43 AM EDT Essential hypertension PAP SMEAR Routine 01/27/2024 9:52 AM EDT HPV MRNA E6/E7 REFLEX TO HPV 16, 18/45 Routine 10/14/2022 9:11 AM EST ZZZ HISTORICAL HEPATITIS C AB W/REFL TO HCV RNA, QN, PCR Routine 02/27/2021 11:07 AM EDT HIV 1/2 ANTIGEN/ANTIBODY, FOURTH GENERATION W/RFL Routine 02/27/2021 11:07 AM EDT from Last 3 Months or Most Recently Relevant to Health Maintenance Results * XR Knee 3 Views Right (07/14/2025 10:25 AM EDT) Anatomical Region Laterality Modality Lower Extremities, Knee Right Radiogra [facility] Imaging 07/14/2025 10:2 5 AM EDT Narrative 07/14/2025 10:40 AM EDT [address] [address] XRay Report Signed Patient: Timothy Phelan MR#: [id number] : 1985 Acct:[id number] Age/Sex: 40 / F ADM Date: 07/14/25 Loc: . Attending Dr: Jack Justin MD Ordering Physician: Maile Coy MD Date of Service: 07/14/25 Procedure(s): XR knee RT 3V Accession Number(s): [id number] cc: Maile Coy MD Reason for Exam: [...] 07/14/25 1037 DD/ 1025 TD/TT: 07/14/25 1033 Molten Iron Pourer: Procedure Note Donotuseinterpreter, Image - 07/14/2025 [place] [address] XRay Report Signed Patient: Tiffany Phelan#: [id number] : 1985Acct:[id number] Age/Sex: 40 / FADM Date: 07/14/25 Loc: HO.US Attending Dr: Jack Justin MD Ordering Physician: Maile Coy MD Date of Service: 07/14/25 Procedure(s): XR knee RT 3V Accession Number(s): [id number] cc: Maile Coy MD Reason for Exam: [...] Amilcar Diaz MD 07/14/2025 10:37 AM EDT RP Dictated By: Amilcar Diaz MD Signed By: <Electronically signed by Amilcar Diaz MD in OV> 07/14/25 1037 DD/ 1025 TD/TT: 07/14/25 1033 Molten [employer] Pourer: us Maile Coy MD IMG XR PROCEDURES Final Result * TSH with Reflex to Free T4 (04/21/2025 6:43 AM EDT) TSH reflex Free T4 0.83 0.32 - 4.0 uIU/mL [facility] Blood 04/21/2025 6:43 AM EDT 04/21/2025 6:43 AM EDT us Maile Coy MD LAB BLOOD ORDERABLES Fin al Result [facility] [address] [place] [phone] * Lipid Panel with Reflex to Direct LDL (04/21/2025 6:43 AM EDT) Triglycerides 136 <150 mg/dL [facility] Comment:Desirable Triglyceri de: less than 150 mg/dLBorderline High Triglyceride 150-199 mg/dLHigh Triglyceride: 200-499 mg/dLVery High Triglyceride: greater than or equal to 5OO mg/dL Cholesterol 162 <200 mg/dL [facility] Comment:Desirable Cholestero l: less than 200 mg/dLBorderline High Cholesterol: 200-239 mg/dLHigh Cholesterol: greater than 239 mg/dL LDL Cholesterol Calculated 87 <100 mg/dL [facility] Comment:Desirable LDL: less than 100 mg/dLNear Optimal/Above Optimal LDL: 110- 129 mg/dLBorderline High LDL: 130-159 mg/dLHigh LDL: 160-189 mg/dLVery High LDL: greater than or equal to 190 mg/dL HDL Cholesterol 48 >40 mg/dL [facility] Comment:Desirable HDL: great er than 40 mg/dL Note: This HDL assay may give artificially low results in patients with liver disease. Blood 04/21/2025 6:43 AM EDT 04/21/2025 6:43 AM EDT us Maile Coy MD LAB BLOOD ORDERABLES Fin al Result [facility] [address], [place] [phone] * (ABNORMAL) CBC (04/21/2025 6:43 AM EDT) White Blood Count 8.3 4.8 - 10.8 X10*3/uL [facility] Red Blood Count 4.17(L) 4.20 - 5.50 X10*6/uL [facility] Hemoglobin 13.2 12.0 - 16.0 g/dl [facility] Hematocrit 37.1 37.0 - 47.0 % [facility] Mean Corpuscular Volume 89.0 80.0 - 98.0 fL [facility] Mean Corpuscular Hemoglobin 31.7 27.0 - 33.0 pg [facility] Mean Corpuscular HGB Conc 35.6(H) 31.0 - 35.0 g/dl [facility] Red Cell Distribution Width 11.9 11.0 - 16.0 % [facility] Platelet Count 324 160 - 400 X10*3/uL [facility] Mean Platelet Volume 10.3 9.4 - 12.3 fL [facility] NRBC Pct Auto 0.0 0.0 - 0.2 /100WBC [facility] NRBC Abs Auto 0.000 0.0 - 0.012 X10*3/uL [facility] 04/21/2025 6:43 AM EDT 04/21/2025 6:43 AM EDT Generic External Data Provider LAB BLOOD ORDERAB LES Final Result Performing Organization Address [facility]/ZIP Co de Phone Number [facility] [address] [place] [phone] * hCG, Total, Quantitative (04/21/2025 6:43 AM EDT) Pathologist [facility] HCG Quantitative <2 mIU/mL [facility] Comment:Weeks post LMP Appro ximate hCG(Last Menstrual Period) Range (mIU/ml)3 - 4 weeks 9 - 1304 - 5 weeks 75 - 2,6005 - 6 weeks 850 - 20,8006 - 7 weeks 4000 - 100,2007 - 12 weeks 11,500 - 289,92918 - 16 weeks 18,300 - 137,46545 - 29 weeks (2nd trimester) 1,400 - 53,50666 - 41 weeks (3rd trimester) 940 - 60,000The Weber B- hCG assay is used for the early detection ofpregnancy; it cannot be used to diagnose any conditionunrelated to . If a B-hCG level is not supportedby the clinical evidence, results should be confirmed by analternative method (qualitative urine hCG, for example). 04/21/2025 6:43 AM EDT 04/21/2025 6:43 AM EDT Generic External Data Provider LAB BLOOD ORDERAB LES Final Result Performing Organization Address City/[facility]/ZIP Co de Phone Number [facility] [address] [place] [phone] * (ABNORMAL) Basic Metabolic Panel (04/21/2025 6:43 AM EDT) [facility] [address] Sodium 140 135 - 145 mmol/L [facility] Potassium 3.3 3.3 - 5.1 mmol/L [facility] Chloride 106 96 - 108 mmol/L [facility] Carbon Dioxide 25 22 - 29 mmol/L [facility] Anion Gap 12 12 - 20 [facility] Urea Nitrogen (BUN) 9 9 - 16 mg/dL [facility] Creatinine, Serum 0.70 0.5 - 1.4 mg/dL [facility] Estimated Glomerular Filt Rate >60 [facility] Comment:Chronic Kidney Disea se: Estimated GFR < 60 mL/min/[id number] Kidney Disease: Estimated GFR < 15 mL/min/1.73m2 Glucose 147(H) 60 - 115 mg/dL [facility] Calcium 8.9 8.4 - 10.2 mg/dL [facility] Blood Venous blood specimen / Unknown 04/21/2025 6:43 AM EDT 04/21/2025 6:43 AM EDT us Maile Coy MD LAB BLOOD ORDERABLES Fin al Result Performing Organization Address City/State/[facility] Co de Phone Number [facility] [address] [place] [phone] * Pap Smear (01/27/2024 9:52 AM EDT) 01/27/2024 9:52 AM EDT 01/27/2024 1:00 PM EDT Donaldo [facility] - 02/15/2024 12:06 PM EDT ----- ------- Name: Timothy Phelan Age/Sex: 39/F : 1985 Unit#: [id number] Attend Dr: Jack Justin MD Re01/27/24 Status: DEP REF Location: [facility] Disch: ----- ------- SPEC : [id number] RECD: 01/27/24 STATUS: MARIA R SERRATO NUM: [id number] ASHLEY: 01/27/[address] [facility] [address]: Jack Justin MD ENTERED: 01/27/24 SP TYPE: Pap Smr OTHR DR: Maile Coy MD ORDERED: Pap Smear Interpretation Satisfactory for evaluation. Coccobacilli consistent with shift in vaginal marci. Negative for intraepithelial lesion or malignancy. HPV mRNA E6/E7: NOT DETECTED This assay detects E6/E7 viral messenger RNA (mRNA) from 14 high-risk HPV types (16, 18, 31, 33, 35, 39, 45, 51, 52, 56, 58, 59, 66, 68) HPV testing performed by [facility], [place], [place]. See reference laboratory portion of the EMR for entire report. Clinical Information LMP: 01/10/2024 Previous PAP test: 2022, HPV+ Material Received ThinPrep-Cervical Copies To: Maiel Coy MD [address] [place] [address] [phone] Jack Justin MD [address] [place] [address] [id number] ----- ------- Signed (signature on file) ERIKA Ochoa (ASCP) 02/15/24 1206 ----- ------- END OF REPORT us Generic External Data Provider LAB CYTOLOGY SON ECHOLS Final Result [facility] [address] [place] [address] [phone] * (ABNORMAL) HPV mRNA E6/E7 w/Reflex to HPV Genotypes 16, 18/45 (10/14/2022 9:11 AM EST) HPV nRNA E6/E7 Detected(A ) Not Detected [facility] Comment:Methodology: Transcr iption-Mediated AmplificationThis assay detects E6/E7 viral messenger RNA (mRNA) from 14high-risk HPV types (16,18,31,33,35,39,45,51,52,56,58,59,66,68).Cervical sources are required for HPV testing.If a vaginal source from a patient who has had atotal hysterectomy with removal of cervix wassubmitted, please contact the testing laboratoryfor alternative testing options.For additional information, please refer tohttp://education.[employer]/faq/QXA789w6(This link if provided for information/educational purposes only.)THIS TEST WAS PERFORMED AT:[facility] [place] [address] ([facility])[place] [address]WSLANJOVITA KULKARNI MD HPV 16 RNA NOT DETECTED NOT DETECTED [facility] HPV 18/45 RNA NOT DETECTED NOT DETECTED [facility] Comment:Methodology: Transcr iption Mediated AmplificationCervical sources are required for HPV testing.If a vaginal source from a patient who has had atotal hysterectomy with removal of cervix wassubmitted, please contact the testing laboratoryfor alternative testing options.THIS TEST WAS PERFORMED AT:[facility] [place] [address] ([facility] [address]QKRLJBAMBI KULKARNI MD 10/14/2022 9:11 AM EST 10/14/2022 11:50 AM EST [facility] External Provider LAB CYT OLOGY ORDERABLES Final Result Performing Organization Address City/[facility]/ZIP Co de Phone Number [facility] [address] [place] [address] [phone] * HEPATITIS C AB W/REFL TO HCV RNA, QN, PCR (02/27/2021 11:07 AM EDT) HEPATITIS C ANTIBODY NON-REACT BEBETO NON-REACT BEBETO [facility] INDEX 0.01 <1.00 [facility] Comment: HCV antibody was non-reactive. There is no laboratory evidence of HCV infection. In most cases, no further action is required. However, if recent HCV exposure is suspected, a test for HCV RNA (test code 36231) is suggested. For additional information please refer to http://education.[employer]/faq/RXI06o4 (This link is being provided for informational/ educational purposes only.) 02/27/2021 11:0 7 AM EDT Yvonne Peterson NP HISTORICAL/NON ORDERABLE LABS F inal Result Performing Organization Address City/[facility] Co de Phone Number [facility] [address] * HIV 1/2 ANTIGEN/ANTIBODY,FOURTH GENERATION W/RFL (02/27/2021 11:07 AM EDT) HIV-1/2 ANTIGEN AND ANTIBODIES, 4TH GENERATION W/ REFLEX NON-REACT BEBETO NON-REACT BEBETO [facility] Comment: HIV-1 antigen and HIV-1/HIV-2 antibodies were not detected. There is no laboratory evidence of HIV infection. PLEASE NOTE: This information has been disclosed to you from records whose confidentiality may be protected by state law. If your state requires such protection, then the state law prohibits you from making any further disclosure of the information without the specific written consent of the person to whom it pertains, or as otherwise permitted by law. A general authorization for the release of medical or other information is NOT sufficient for this purpose. For additional information please refer to http://education.[employer]Scandit/faq/LBT114 (This link is being provided for informational/ educational purposes only.) The performance of this assay has not been clinically validated in patients less than 2 years old. 02/27/2021 11:0 7 AM EDT us Yvonne Peterson DEPOSIT CLERK LAB BLOOD ORDERABLES Final Resu lt [facility] [address] from Last 3 Months or Most Recently Relevant to Health Maintenance Insurance [facility] - [facility] PARTIAL (MEDICAID) Care Teams Asphalt Coater Relationship Specialty Start Date End Date Maile Coy MD [address] [place] [phone] PCP - General Family Medicine 06/25/17
--- OUTSIDE RECORDS SUMMARY | 2025-07-14 10:47 | XMS_ITS | Encounter Summary ---
Author Organization [employer] Address 75 [facility] 7 [place] [address] Care Team Providers Care Entry Level Chemist Name Role Phone Maile Coy MD Primary Care Provider + Reason for Visit * Reason Comments Med Refill Encounter Details Date Type Department Care Team ([facility] st Contact Info) Description 10/20/2023 Refill [facility] [address] [place] [address] Maile Coy MD [address] [place] [address] Gastroesophageal reflux disease, unspecified whether esophagitis present; Acute recurrent frontal sinusitis; Primary hypertension Social History Tobacco Use Types Packs/Day Years Used Date Smoking Tobacco: Never Smokeless Tobacco: Never Alcohol Use Standard Drinks/Week Comments Yes 0 (1 standard drink = 0.6 oz pur e alcohol) oca Housing Stability Answer Date Recorded What is your housing situation today? I have nagikiko mott 08/01/[address] you li ve. Do you have problems with any of the following? None of the above 08/01/2023 Food Insecurity Answer Date Recorded Within the past 12 months, y ou worried that your food would run out before you got money to buy more: Never True 08/01/2023 Within the past 12 months,th e food you bought just didn't last and you didn't have enough money to get more: Never True Transportation Answer Date Recorded In the past 12 months, has l ack of transportation kept you from medical appts, meetings, work or from getting things needed for daily living? No 08/01/2023 Utilities Answer Date Recorded In the past 12 months, has t he electric, gas, oil or water company threatened to shut off services in your home? No 08/01/2023 Depression Answer Date Recorded Patient Health Questionnaire-2 [...] Description 07/18/2025 3:30 PM EDT Clinical Support [facility] DIABETES/NUTRITION [address] [place] [address] Mariana Echavarria, GIACOMO [address] [place] [address] 09/18/2025 11:15 AM EST Office Visit [facility] MEDICINE [address] [place] [address] Maile Coy MD [address] [place] [address] documented as of this encounter Visit Diagnoses Diagnosis Gastroesophageal reflux disease, unspecified whether esophagitis present Acute recurrent frontal sinusitis Primary hypertension Unspecified essential hypertension documented in this encounter Care Teams Entry Level Chemist Relationship Specialty Start Date End Date Maile Coy MD [address] [place] [address] PCP - General Family Medicine 06/25/17 documented as of this encounter
--- OUTSIDE RECORDS SUMMARY | 2025-07-14 10:47 | XMS_ITS | Encounter Summary ---
Author Organization [employer] Address 75 [facility] 7 [place] [address] Care Team Providers Care Special Investigator Name Role Phone Maile Coy MD Primary Care Provider + Encounter Details Date Type Department Care Team (Latest Contact Info) Description 05/31/2021 Abstract [facility] CONVERSIONS Dental, Provider, DDS Social History Tobacco Use Types Packs/Day Years Used Date Smoking Tobacco: Never Assessed Comments Unknown Sex and Gender Information Value Date Recorded Sex Assigned at Female 08/04/2022 10:32 AM EDT Legal Sex Female 10:32 AM EDT Gender Identity Female 08/04/2022 10:32 AM EDT Sexual Orientation Straight 08/04/2022 10 :32 AM EDT documented as of this encounter Plan of Treatment Upcoming Encounters Date Type Department Care Team ( st Contact Info) Description 07/18/2025 3:30 PM EDT Clinical Support [facility] DIABETES/NUTRITION [address] [place] [address] [place] [address] 09/18/2025 11:15 AM EST Office Visit [facility] MEDICINE [address] [place] [address] Miale Coy MD [address] [place] [address] documented as of this encounter Visit Diagnoses Not on filedocumented in this encounter Care Teams Special Investigator Relationship Specialty Start Date End Date Maile Coy MD [address] [place] [address] PCP - General Family Medicine 06/25/17 documented as of this encounter
--- OUTSIDE RECORDS SUMMARY | 2025-07-14 10:47 | XMS_ITS | Encounter Summary ---
Author Organization [employer] Address 75 [facility] 7 [place] [address] Care Team Providers Care Trading Analyst Name Role Phone Maile Coy MD Primary Care Provider + Encounter Details Date Type Department Care Team (Late Contact Info) Description 12/17/2022 Orders Only [facility] [address] [place] [address] Ivett Rios LPN Social History Tobacco Use [...] Department Care Team (Late Contact Info) Description 07/18/2025 3:30 PM EDT Clinical Support [facility] DIABETES/NUTRITION [address] [place] [address] [place] [address] 09/18/2025 11:15 AM EST Office Visit [facility] MEDICINE [address] [place] [address] Maile Coy MD [address] [place] [address] [phone] documented as of this encounter Visit Diagnoses Not on filedocumented in this encounter Care Teams Trading Analyst Relationship Specialty Start Date End Date Maile Coy MD [address] [place] [phone] PCP - General Family Medicine 06/25/17 documented as of this encounter
--- OUTSIDE RECORDS SUMMARY | 2025-07-14 10:47 | XMS_ITS | Encounter Summary ---
Author Organization [employer] Address 75 [facility] 7t [place] [address] Care Team Providers Care Film Cleaner Name Role Phone Maile Coy MD Primary Care Provider + Reason for Visit * Reason Comments Med Refill Encounter Details Date Type Department Care Team ([facility] st Contact Info) Description 04/22/2025 Refill [facility] [address] [place] [address] Maile Coy MD [address] [place] [address] Moderate persistent asthma without complication; Acute recurrent frontal sinusitis Social History Tobacco Use Types Packs/Day Years [...] Date Recorded Patient Health Questionnaire-2 Score 0 03/30/2025 Internet Access Answer Date Recorded Internet Access [...] Description 07/18/2025 3:30 PM EDT Clinical Support [facility] DI[facility]NUTRITION [address] [place] [address] [place] [address] 09/18/2025 11:15 AM EST Office Visit [facility] [address] [place] [address] Maile Coy MD [address] [place] [address] documented as of this encounter Visit Diagnoses Diagnosis Moderate persistent asthma without complication Acute recurrent frontal sinusitis documented in this encounter Care Teams Film Cleaner Relationship Specialty Start Date End Date Maile Coy MD [address] [place] [phone] PCP - General Family Medicine 06/25/17 documented as of this encounter
--- OUTSIDE RECORDS SUMMARY | 2025-07-14 10:47 | XMS_ITS | Encounter Summary ---
Author Organization [employer] Address 75 [facility] 7 [place] [address] Care Team Providers Care Kitchen Hand Name Role Phone Maile Coy MD Primary Care Provider + Reason for Visit * Reason Onset Date Comments appt 01/22/2024 Encounter Details Date Type Department Care Team ([facility] st Contact Info) Description 01/22/2024 Telephone [facility] [address] [place] [address] Brandon, Janeth [address] [place] [address] appt Social History Tobacco Use Types Packs/Day Years Used Date Smoking Tobacco: Never Smokeless Tobacco: Never Alcohol Use Standard Drinks/Week Comments Yes 0 (1 standard drink = 0.6 oz pur e alcohol) oca Housing Stability Answer Date Recorded What is your housing situation today? I have nagi mott 08/01/[address] you [...] AM EDT documented as of this encounter Miscellaneous Notes * Telephone Encounter - Claudia Flores - 01/22/2024 11:07 AM EDT Patient called in checking in on status of appt for cleaning with Janeth. On waiting list since 07/2023 documented in this encounter Plan of Treatment Upcoming Encounters Date Type Department Care Team (Late st Contact Info) Description 07/18/2025 3:30 PM EDT Clinical Support [facility] DIABETES/NUTRITION [address] [place] [address] [place] [address] 09/18/2025 11:15 AM EST Office Visit [facility] MEDICINE [address] [place] [address] Maile Coy MD [address] [place] [address] documented as of this encounter Visit Diagnoses Not on filedocumented in this encounter Care Teams Kitchen Hand Relationship Specialty Start Date End Date Maile Coy MD [address] [place] [address] PCP - General Family Medicine 06/25/17 documented as of this encounter
--- OUTSIDE RECORDS SUMMARY | 2025-07-14 10:47 | XMS_ITS | Encounter Summary ---
Author Organization [employer] Address 75 [facility] 7 [place] [address] Care Team Providers Care Manager Qa Name Role Phone Maile Coy MD Primary Care Provider + Encounter Details Date Type Department Care Team (Late Contact Info) Description 01/16/2023 Orders Only [facility] MEDICINE [address] [place] [address] [phone] Bindu Corcoran LPN Social History Tobacco Use Types Packs/Day [...] Description 07/18/2025 3:30 PM EDT Clinical Support [facility] DIABETES/NUTRITION [address] [place] [address] [place] [address] 09/18/2025 11:15 AM EST Office Visit [facility] MEDICINE [address] [place] [phone] Maile Coy MD [address] [place] [address] [phone] documented as of this encounter Visit Diagnoses Not on filedocumented in this encounter Care Teams Manager Qa Relationship Specialty Start Date End Date Maile Coy MD [address] [place] [phone] PCP - General Family Medicine 06/25/17 documented as of this encounter
--- OUTSIDE RECORDS SUMMARY | 2025-07-14 10:47 | XMS_ITS | Encounter Summary ---
Author Organization [employer] Address [address] [facility] [address] 7[address] [place] [address] Care Team Providers Care Lining Caser Name Role Phone Maile Coy MD Primary Care Provider + Encounter Details Date Type Department Care Team (Latest Contact Info) Description 07/12/2025 Travel Social History Tobacco Use Types Packs/Day Years [...] AM EDT documented as of this encounter Functional Status * Over the past 2 weeks, how often have you been bothered by any of the following problems? Question Answer Date of Assessment Author Patient Health Questionnaire -2 Score 1 07/12/2025 11:58 AM EDT Arlene Harrington MA * Little interest or pleasure in [...] Harrington MA documented as of this encounter Plan of Treatment Upcoming Encounters Date Type Department Care Team (Late st Contact Info) Description 07/18/2025 3:30 PM EDT Clinical Support [facility] DIABETES/NUTRITION [address] [place] [address] Mariana Echavarria, GIACOMO [address] [place] [address] 09/18/2025 11:15 AM EST Office Visit [facility] MEDICINE [address] [place] [address] Maile Coy MD [address] [place] [address] documented as of this encounter Visit Diagnoses Not on filedocumented in this encounter Care Teams Lining Caser Relationship Specialty Start Date End Date Maile Coy MD [address] [place] [phone] PCP - General Family Medicine 06/25/17 documented as of this encounter
--- OUTSIDE RECORDS SUMMARY | 2025-07-14 10:47 | XMS_ITS | Encounter Summary ---
Author Organization [employer] Address [address] [place] [address] 7 [place] [address] Care Team Providers Care Activity Director Name Role Phone Maile Coy MD Primary Care Provider + Encounter Details Date Type Department Care Team ([facility] Contact Info) Description 06/30/2023 Orders Only [facility] MEDICINE [address] [place] [address] Provider, MD Adithya Social History Tobacco Use Types Packs/Day Years [...] Upcoming Encounters Date Type Department Care Team ([facility] Contact Info) Description 07/18/2025 3:30 PM EDT Clinical Support [facility] DIABETES/NUTRITION [address] [place] [address] [place] [address] 09/18/2025 11:15 AM EST Office Visit [facility] MEDICINE [address] [place] [address] Maile Coy MD [address] [place] [address] documented as of this encounter Procedures Procedure Name Priority Date/Time Associated Diagnosis Comments HM PAP/HPV Routine 08/28/2021 documented in this encounter Results * Hm Pap Smear (08/28/2021) Historical Provider [facility] Final Result documented in this encounter Visit Diagnoses Not on filedocumented in this encounter Care Teams Activity Director Relationship Specialty Start Date End Date Maile Coy MD [address] [place] [address] PCP - General Family Medicine 06/25/17 documented as of this encounter
--- OUTSIDE RECORDS SUMMARY | 2025-07-14 10:47 | XMS_ITS | Encounter Summary ---
Author Organization [employer] Address 75 [facility] 7 [place] [address] Care Team Providers Care Salesperson Men'S Furnishings Name Role Phone Maile Coy MD Primary Care Provider + Encounter Details Date Type Department Care Team (Latest Contact Info) Description 09/15/2019 Abstract [facility] CONVERSIONS Dental, Provider, DDS Social History Tobacco [...] 3:30 PM EDT Clinical Support [facility] DIABETES/NUTRITION [address] [place] [address] [place] [address] 09/18/2025 11:15 AM EST Office Visit [facility] MEDICINE [address] [place] [address] Maile Coy MD [address] [place] [address] documented as of this encounter Visit Diagnoses Not on filedocumented in this encounter Care Teams Salesperson Men'S Furnishings Relationship Specialty Start Date End Date Maile Coy MD [address] [place] [address] PCP - General Family Medicine 06/25/17 documented as of this encounter
--- OUTSIDE RECORDS SUMMARY | 2025-07-14 10:47 | XMS_ITS | Encounter Summary ---
Author Organization [employer] Address 75 [facility] 7 [place] [address] Care Team Providers Care Photoengraving Proofer Apprentice Name Role Phone Maile Coy MD Primary Care Provider + Reason for Visit * Reason Onset Date Comments chart prep 07/11/2025 Encounter Details Date Type Department Care Team ([facility] st Contact Info) Description 07/11/2025 Telephone [facility] MEDICINE [address] [place] [address] Maile Coy MD [address] [place] [address] chart prep Social History Tobacco Use Types Packs/Day Years [...] encounter Miscellaneous Notes * Telephone Encounter - Kash Brown MA - 07/11/2025 3:14 PM EDT Chart Prep Labs: done Images: not applicable Referrals: complete Vaccines due: Flu, PCV20, Hep B, and HPV Screenings: not applicable Overdue care gaps: PHQ-9 and LALA-7 documented in this encounter Plan of Treatment Upcoming Encounters Date Type Department Care Team (Late st Contact Info) Description 07/18/2025 3:30 PM EDT Clinical Support [facility] DIABETES/NUTRITION [address] [place] [address] [place] [address] 09/18/2025 11:15 AM EST Office Visit [facility] MEDICINE [address] [place] [address] Maile Coy MD [address] [place] [address] documented as of this encounter Visit Diagnoses Not on filedocumented in this encounter Care Teams Photoengraving Proofer Apprentice Relationship Specialty Start Date End Date Maile Coy MD [address] [place] [address] PCP - General Family Medicine 06/25/17 documented as of this encounter
== END 2025-07-14 09:55 | disposition home or self-care (01) ==
LOC: HO.US 09:54
PROVIDERS: PCP Internal Medicine; Referring Provider Internal Medicine; Visit Provider Obstetrics & Gynecology
DX: M17.0 Bilateral primary osteoarthritis of knee (principal); N93.9 Abnormal uterine and vaginal bleeding, unspecified
CPT/HCPCS: 73562; 76830; 76856

== ENCOUNTER → 2025-07-14 10:06 | Outpatient (BNV) | payer OTHER, SELFPAY | PROVIDERS: PCP Internal Medicine; Referring Provider Internal Medicine; Visit Provider Radiology Diagnostic Radiology | DX: N93.9 Abnormal uterine and vaginal bleeding, unspecified (principal); M17.11 Unilateral primary osteoarthritis, right knee | CPT/HCPCS: 73562; 76830; 76856 ==

== ENCOUNTER 2025-07-26 08:36 | Outpatient (AMB) | payer OTHER, SELFPAY ==
--- NOTE | 2025-07-26 09:26 | MHC.OFFVIS ---
Vital Signs 07/26/25 09:29 Height 5 ft 4 in Weight 230 lb BMI 39.5 BP 140/90 H Intake Visit Reasons: US results Sk[employer] Reverberatory Required: Yes [employer]ber[employer] Language: Keno Writer/Runner Services: Sk[employer]ber[employer] Present (in person) Sk[employer]ber[employer] Name: Cristin CALIX Information Interpreted: non-clinical & clinical Allergies No Known Allergies (No Known Allergies*) Allergy (Verified 07/26/25 09:36) HPI Comments Details: Presenting for [facility] Medical History Personal history of COVID-19 COVID-19 vaccine series completed Dysplasia of cervix, low grade (WALLACE 1) Acid reflux Asthma Hypertension Surgical History Hx of appendectomy History of section Family History Maternal Grandmother HTN (hypertension) Diabetes Father HTN (hypertension) Mother HTN (hypertension) Social History Household Members Other:: daughter Housing: Apartment Alcohol intake: current Alcohol intake frequency: holidays/special occasions only Patient Tobacco Use Status: Former Tobacco user Current occupational status: employed 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 hysteroscopy D&C) & the risks were discussed with the patient including but not limited: pain, uterine perforation, bleeding, infection, possible injury to bladder, bowel, ureter, possible need for blood transfusion with all its possible risks. The patient verbalized understanding all questions answered and signed consent. Urine test done in the office was negative The patient was placed into the dorsal lithotomy position; a speculum was inserted in the vagina. Using aseptic technique for the procedure, the cervix was cleansed with Betadine. The anterior lip of the cervix was grasped with a single tooth tenaculum. The uterus was sounded to 7 cm with a 4 mm Pipelle was used. Tissues samples were obtained and placed in formalin, in a patient labeled container and sent to the pathology department. At the end of the procedure, there was minimal bleeding noted The patient tolerated the procedure well and was discharged in good condition with the following instructions: Nothing in the vagina until the bleeding stops. No sex until the bleeding stops, to call if any of the following occurs: fever (>100.4), flu-like symptoms, abdominal pain, heavy bleeding, four smelling vaginal discharge. The patient was instructed to schedule a Follow up appointment in 2 weeks to discuss pathology results of the biopsy and treatment options. This note was generated with a voice recognition program. Some errors may have been overlooked during the review of this note. Sometimes these errors may affect the content or meaning of a given sentence. [id number] Biopsy Assessment & Plan Assessment & Plan (1) Abnormal uterine bleeding (AUB): Comment: With hirsutism, possible PCOS Code(s): N93.9 - Abnormal uterine and vaginal bleeding, unspecified Category: Medical Plan: EMB done, see procedure note Orders: Orders AMB Endometrial Biopsy Today N93.9 - Abnormal uterine and vaginal bleeding, unspecified Coding Level of Care Code Procedure Only Diagnoses Abnormal uterine bleeding (AUB) N93.9 CPT Codes Endometrial Biopsy - CPT: 24927-[id number] Biopsy ([id number])
[2025-07-26 09:29] VITALS: BP 140/90; BMI 39.5
== END 2025-07-26 10:26 | disposition home or self-care (01) ==
LOC: HO.HWS 08:36
PROVIDERS: PCP Internal Medicine; Visit Provider Obstetrics & Gynecology
DX: N93.9 Abnormal uterine and vaginal bleeding, unspecified (principal)
CPT/HCPCS: 58100

== ENCOUNTER 2025-07-26 08:36 | Outpatient (REF) | payer OTHER, SELFPAY ==
--- OUTSIDE RECORDS SUMMARY | 2025-07-26 13:59 | XMS_ITS | Encounter Summary ---
Author Organization [employer] Address [address] [facility] 7 [place] [address] Care Team Providers Care Student Assistant Name Role Phone Maile Coy MD Primary Care Provider + Encounter Details Date Type Department Care Team (Late Contact Info) Description 12/17/2022 Orders Only [facility] CHC MED & PEDS [address] [place] [address] Ivett Rios LPN Social History Tobacco Use [...] Department Care Team (Late Contact Info) Description 09/18/2025 11:15 AM EST Office Visit [facility] MEDICINE [address] [place] [address] Maile Coy MD [address] [place] [address] documented as of this encounter Visit Diagnoses Not on filedocumented in this encounter Care Teams Student Assistant Relationship Specialty Start Date End Date Maile Coy MD [address] [place], [place] [phone] PCP - General Family Medicine 06/25/17 documented as of this encounter
--- OUTSIDE RECORDS SUMMARY | 2025-07-26 13:59 | XMS_ITS | Encounter Summary ---
Author Organization [employer] Address [address] [place] [address] [place] [address] Care Team Providers Care Instructor Of Education Name Role Phone Maile Coy MD Primary Care Provider + Encounter Details Date Type Department Care Team (Late Contact Info) Description 01/16/2023 Orders Only [facility] MEDICINE [address] [place] [phone] Bindu Corcoran LPN Social History Tobacco Use [...] Description 09/18/2025 11:15 AM EST Office Visit [facility] MEDICINE [address] [place] [address] Maile Coy MD [address] [place] [address] documented as of this encounter Visit Diagnoses Not on filedocumented in this encounter Care Teams Instructor Of Education Relationship Specialty Start Date End Date Maile Coy MD [address] [place] [phone] PCP - General Family Medicine 06/25/17 documented as of this encounter
--- OUTSIDE RECORDS SUMMARY | 2025-07-26 13:59 | XMS_ITS | Encounter Summary ---
Author Organization [employer] Address [address] [facility] [address] [place] [address] Care Team Providers Care Rn Radiation Oncology Name Role Phone Maile Coy MD Primary Care Provider + Encounter Details Date Type Department Care Team ([facility] Contact Info) Description 03/27/2023 Orders Only [facility] CHC MED & PEDS [address] [place] [address] Ivett Rios LPN Social History Tobacco Use [...] Upcoming Encounters Date Type Department Care Team ([facility] Contact Info) Description 09/18/2025 11:15 AM EST Office Visit [facility] MEDICINE [address] [place] [address] Maile Coy MD [address] [place] [address] documented as of this encounter Visit Diagnoses Not on filedocumented in this encounter Care Teams Rn Radiation Oncology Relationship Specialty Start Date End Date Maile Coy MD [address] [place] [address] PCP - General Family Medicine 06/25/17 documented as of this encounter
--- OUTSIDE RECORDS SUMMARY | 2025-07-26 13:59 | XMS_ITS | Encounter Summary ---
Author Organization [employer] Address [address] [place] [phone] Care Team Providers Care Records Assistant Name Role Phone Maile Coy MD Primary Care Provider + Encounter Details Date Type Department Care Team ([facility] Contact Info) Description 06/30/2023 Orders Only [facility] MEDICINE [address] [place] [address] [phone] ProviderAdithya MD Social History Tobacco Use Types Packs/Day Years [...] Upcoming Encounters Date Type Department Care Team ([facility] Contact Info) Description 09/18/2025 11:15 AM EST Office Visit [facility] MEDICINE [address] [place] [address] [phone] Maile Coy MD [address] [place] [address] [phone] documented as of this encounter Procedures Procedure Name Priority Date/Time Associated Diagnosis Comments HM PAP/HPV Routine 08/28/2021 documented in this encounter Results * Hm Pap Smear (08/28/2021) us Historical Provider HEALTH MAINTENANCE Final Result documented in this encounter Visit Diagnoses Not on filedocumented in this encounter Care Teams Records Assistant Relationship Specialty Start Date End Date Maile Coy MD [address] [place] [phone] PCP - General Family Medicine 06/25/17 documented as of this encounter
--- OUTSIDE RECORDS SUMMARY | 2025-07-26 13:59 | XMS_ITS | Encounter Summary ---
Author Organization [employer] Address [address] [facility] 7 [place] [address] Care Team Providers Care Hospice Social Worker Name Role Phone Maile Coy MD Primary Care Provider + Reason for Visit * Reason Comments Med Refill Encounter Details Date Type Department Care Team ([facility] st Contact Info) Description 04/22/2025 Refill [facility] MEDICINE [address] [place] [address] Maile Coy MD [address] [place] [address] Moderate persistent asthma without complication; Acute recurrent [...] Care Team (Late st Contact Info) Description 09/18/2025 11:15 AM EST Office Visit [facility] MEDICINE [address] [place] [address] Maile Coy MD [address] [place] [address] documented as of this encounter Visit Diagnoses Diagnosis Moderate persistent asthma without complication Acute recurrent frontal sinusitis documented in this encounter Care Teams Hospice Social Worker Relationship Specialty Start Date End Date Maile Coy MD [address] [place] [address] PCP - General Family Medicine 06/25/17 documented as of this encounter
--- OUTSIDE RECORDS SUMMARY | 2025-07-26 13:59 | XMS_ITS | Encounter Summary ---
Author Organization [employer] Address [address] [facility] 7 [place] [address] Care Team Providers Care Care Trainer Name Role Phone Maile Coy MD Primary Care Provider + Reason for Visit * Reason Onset Date Comments appt 01/22/2024 Encounter Details Date Type Department Care Team ([facility] st Contact Info) Description 01/22/2024 Telephone [facility] ADULT DENTAL [address] [place] [address] Brandon, Janeth [address] [place] [address] appt Social History Tobacco Use Types Packs/Day [...] on status of appt for cleaning with Jnaeth. On waiting list since 07/2023 documented in this encounter Plan of Treatment Upcoming Encounters Date Type Department Care Team (Late st Contact Info) Description 09/18/2025 11:15 AM EST Office Visit [facility] MEDICINE [address] [place] [phone] Maile Coy MD [address] [place] [phone] documented as of this encounter Visit Diagnoses Not on filedocumented in this encounter Care Teams Care Trainer Relationship Specialty Start Date End Date Maile Coy MD [address] [place] [phone] PCP - General Family Medicine 06/25/17 documented as of this encounter
--- OUTSIDE RECORDS SUMMARY | 2025-07-26 13:59 | XMS_ITS | Encounter Summary ---
Author Organization [email or web address] Address [address] [place] [address] [place] [address] Care Team Providers Care Patient Service Rep Name Role Phone Maile Coy MD Primary Care Provider + Encounter Details Date Type Department Care Team (Latest Contact Info) Description 05/31/2021 Abstract [facility] CONVERSIONS Dental, Provider, DDS Social History [...] AM EST Office Visit [facility] MEDICINE [address] [place] [address] Maile Coy MD [address] [place] [address] documented as of this encounter Visit Diagnoses Not on filedocumented in this encounter Care Teams Patient Service Rep Relationship Specialty Start Date End Date Maile Coy MD [address] [place] [address] PCP - General Family Medicine 06/25/17 documented as of this encounter
--- OUTSIDE RECORDS SUMMARY | 2025-07-26 13:59 | XMS_ITS | Encounter Summary ---
Author Organization [employer] Address [address] [facility] 7 [place] [address] Care Team Providers Care Blood Bank Booking Clerk Name Role Phone Maile Coy MD Primary Care Provider + Reason for Visit * Reason Comments Med Refill Encounter Details Date Type Department Care Team ([facility] st Contact Info) Description 10/20/[address] [facility] [address] [place] [address] Maile Coy MD [address] [place] [address] Gastroesophageal reflux disease, unspecified whether esophagitis present; [...] Description 09/18/2025 11:15 AM EST Office Visit [facility] MEDICINE [address] [place] [address] Maile Coy MD [address] [place] [phone] documented as of this encounter Visit Diagnoses Diagnosis Gastroesophageal reflux disease, unspecified whether esophagitis present Acute recurrent frontal sinusitis Primary hypertension Unspecified essential hypertension documented in this encounter Care Teams Blood Bank Booking Clerk Relationship Specialty Start Date End Date Maile Coy MD [address] [place] [phone] PCP - General Family Medicine 06/25/17 documented as of this encounter
--- OUTSIDE RECORDS SUMMARY | 2025-07-26 13:59 | XMS_ITS | Clinical Summary ---
Author Organization [employer] Address [address] [facility] 7 [place] [address] Care Team Providers Care Resident Care Assistant Name Role Phone Maile Coy MD [...] 30 tablet 11 03/30/20 25 026 Active cetirizine (ZyrTEC) 10 MG tablet Take [...] or split. 30 tablet 11 07/12/20 25 026 Active Fluticasone-Afshin meterol (Advair Diskus) 250-50 MCG/ACT aerosol powderIndicatio ns:Moderate persistent asthma with exacerbation Inhale 1 puff 2 times daily. INHALE 1 PUFF 2 TIMES DAILY. STOP FLOVENT. 60 each 11 07/12/20 25 Active meloxicam (Mobic) 15 MG tablet Take 1 tablet (15 mg) by mouth Once per day. 30 tablet 07/12/20 25 026 Active albuterol 108 (90 Base) MCG/ACT inhalerIndicati ons:Moderate persistent asthma without complication INHALE 2 PUFFS BY MOUTH EVERY 4 TO 6 HOURS NEEDED 18 g 1 07/17/20 Active ibuprofen 800 MG tabletIndicatio ns:Chronic knee pain, unspecified laterality TAKE 1 TABLET BY MOUTH THREE TIMES A DAY WITH FOOD 30 tablet 1 08/25/20 23 025 Discontinued(I neffective) Fluticasone-Afshin meterol (Advair Diskus) 250-50 MCG/ACT aerosol powderIndicatio ns:Moderate persistent asthma without complication Inhale 1 puff 2 times daily. INHALE 1 PUFF 2 TIMES DAILY. STOP FLOVENT. 60 each 3 03/30/20 25 025 Discontinued(R eorder (will not trigger notification to Pharmacy)) albuterol (Ventolin HFA) 108 (90 Base) MCG/ACT inhalerIndicati ons:Moderate persistent asthma without complication TAKE 2 PUFFS BY MOUTH EVERY 4 TO 6 HOURS NEEDED 18 g 1 03/30/20 25 025 Discontinued meloxicam (Mobic) 15 MG tablet Take 1 tablet (15 mg) by mouth Once per day. 30 tablet 03/30/20 25 025 Discontinued(R eorder (will not [...] have amenorrhea. Advised to follow up with FILM AND VIDEO EDITOR, she may need to have PCOS treated. [...] 02/11/2019 Overview (03/06/2023): Sleep study on 03/2022 ([facility]) : Mild ALBERTO (AHI was 30) Recc [...] activity. Check home BP BIW and prn CP/GIRNO/MICHELLE Non smoking patient. Assessment & Plan (03/06/2023 [...] Plan (07/12/2025 2:21 PM EDT): Seen by FILM AND VIDEO EDITOR, she desires Class 2 severe obesity due [...] exercise, life style modifications, diet, referral to credit collections specialist, patient states that she eats 1 and maximum 2 meals per day. Discussed re lower calorie intake, increase dietary fiber, reminded her to call to [facility] weight management program, she has info r [...] exercise, life style modifications, diet, referral to credit collections specialist. Discussed re lower calorie intake, increase dietary fiber, reminded her to call to [facility] weight management program, she has info r with her. FU in 4m Assessment & Plan (03/06/2023 11:14 AM EDT): Discussed re weight reduction options including exercise, life style modifications, diet, referral to credit collections specialist. Discussed re lower calorie intake, increase dietary fiber I gave her informaiton about [facility] and [facility] weight reduction program so she can go to informative sessions FU in 2-3 months Resolved Problems Problem Noted Date Diagnosed Date Resolved Date Asthma 03/30/2025 03/30/2025 Gingival bleeding 02/15/2024 05/19/2024 Elevated blood pressure read ing with diagnosis of hypertension 01/23/2023 05/19/2024 Community acquired pneumonia 01/23/2023 05/19/2024 Acute frontal sinusitis 01/23/202305/05 Assessment & Plan (01/28/2023 10:57 AM EDT): nasal saline + restart flonase + singulair Can take Tylenol PRN and FU with me PRN Obesity (BMI 30.0-34.9) 01/23/2023 06/0 11/2022 Mild intermittent asthma 07/06/2017 Pain in female pelvis 07/06/20172023 Encounters Date Type Department Care Team Description 07/16/2025 Refill [facility] [address] [place] [address] Maile Coy MD Moderate persistent asthma without complication 07/14/2025 Orders Only [facility] External Provider, [facility] 07/12/2025 11:30 AM EDT Office Visit [facility] [address] [place] [address] Maile Coy MD Class 2 severe obesity due to excess calories with serious comorbidity and body mass index (BMI) of 39.0 to 39.9 in adult (Primary Dx); Moderate persistent asthma with exacerbation; Primary osteoarthritis of both knees; PCOS (polycystic ovarian syndrome); Dietary counseling; Exercise counseling; Encounter for immunization 07/12/2025 Travel 07/11/2025 Telephone [facility] [address] [place] [phone] Maile Coy MD chart prep 06/20/2025 11:00 AM EDT Nutrition [facility] DIABETES/NUTRITION [address] [place] [phone] Class 2 severe obesity due to excess calories with serious comorbidity and body mass index (BMI) of 36.0 to 36.9 in adult ([facility]) 06/20/2025 Travel 05/19/2025 Telephone [facility] [address] [place] [address] [phone] Maile Coy MD Referral 05/11/2025 10:00 AM EDT Office Visit [facility] AD[facility] [address] [place] [address] [phone] Janeth Taylor Gingival bleeding (Primary Dx); Dental calculus; Gingivitis; Tongue coating from Last 3 Months Immunizations Immunization Administration [...] Description 09/18/2025 11:15 AM EST Office Visit [facility] [address] [facility] [place] [address] Maile Coy MD [address] [facility] [place] [address] Health Maintenance Due Date Last Done Comments [...] history exists Depression Screening 07/12/2026 07/12/2025, 07/12/20 25 Tobacco Screening 07/12/2026 07/12/2025 Pap Smear 01/26/2027 01/27/2024, 10/05, 08/28/2021 DTaP/Tdap/Td Vaccines (2 - Td or Tdap) 09/21/2027 09/21/2017 Cervical Cancer Screening 10/14/2027 HPV/Cotest 10/14/2027 10/14/2022, 08/06, 08/28/2021 Dental X-Ray: Full Mouth 05/12/2028 025, 05/31/2021, 08/17/2017 Lipid Panel 04/21/2030 04/21/2025, 08/0 05/2024, 07/07/2022, Additional history exists Zoster Vaccines (1 [...] Procedure Name Priority Date/Time Associated Diagnosis Comments US PELVIS TRANSVAGINAL Routine 07/14/2025 2:08 PM EDT XR KNEE 3 VIEWS RIGHT Routine 07/14/2025 [...] 10:00 AM EDT Gingival bleeding Dental calculus LIPID PANEL WITH REFLEX TO DIRECT LDL [...] Recently Relevant to Health Maintenance Results * US Pelvis Transvaginal (07/14/2025 2:08 PM EDT) Anatomical Region Laterality Modality Pelvis Ultrasound 07/14/2025 2:08 PM EDT Narrative 07/14/2025 2:34 PM EDT [place] [address] Ultrasound Report Signed Patient: Timothy Phelan MR#: [id number] : 1985 Acct:[id number] Age/Sex: 40 / F ADM Date: 07/14/25 Loc: .US Attending Dr: Jack Justin MD Ordering Physician: Jack Justin MD Date of Service: 07/14/25 Procedure(s): US pelvic and transvaginal Accession Number(s): [id number] cc: Maile Coy MD; Jack Justin MD Reason for Exam: N93.9 - Abnormal uterine and vaginal bleeding, unspecified EXAMINATION: US PELVIS CLINICAL INFORMATION: Abnormal uterine and vaginal bleeding. LMP = 07/01/2025. COMPARISON: 09/17/2021. TECHNIQUE: Ultrasound of the pelvis is performed using both transabdominal and transvaginal transducers along with Doppler. Transvaginal imaging is performed due to inadequate visualization transabdominally. FINDINGS: Uterus: The uterus is anteverted, anteflexed and measures 8.8 x 4.6 x 5.9 cm. The cervix appears normal sonographically, with small nabothian cysts present. The double wall endometrial thickness is 11 mm. It is uniform without irregularity. The uterus is smooth in contour and has normal myometrial echogenicity. No visible fibroid. Adnexa: Both ovaries are visualized. There is normal color flow to the adnexa. There is no ovarian torsion. There is no pelvic ascites or fluid collection. There are no adnexal masses. Right ovary measures 3.5 x 2.9 x 3.8 cm. Volume = 20.3 mL. Normal sonographic appearance. Left ovary measures 3.4 x 2.3 x 2.6 cm. Volume = 10.7 mL. Normal sonographic appearance. US/US pelvic and transvaginal IMPRESSION: Normal pelvic ultrasound. Electronically signed by: Amilcar Diaz MD 07/14/2025 02:31 PM EDT Dictated By: Amilcar Diaz MD Signed By: <Electronically signed by Amilcar Diaz MD in OV> 07/14/25 1431 DD/ 1408 TD/TT: 07/14/25 14[address] Supervisor: Procedure Note Donotuseinterpreter, Image - 07/14/2025 [place] [address] Ultrasound Report Signed Patient: Tiffany Phelan#: [id number] : 1985Acct:[id number] Age/Sex: 40 / FADM Date: 07/14/25 Loc: .US Attending Dr: Jack Justin MD Ordering Physician: Jack Justin MD Date of Service: 07/14/25 Procedure(s): US pelvic and transvaginal Accession Number(s): [id number] cc: Maile Coy MD; Jack Justin MD Reason for Exam: N93.9 - Abnormal uterine and vaginal bleeding,unspecified EXAMINATION: US PELVIS CLINICAL INFORMATION: Abnormal uterine and vaginal bleeding. LMP = 07/01/2025. COMPARISON: 09/17/2021. TECHNIQUE: Ultrasound of the pelvis is performed using both transabdominal and transvaginal transducers along with Doppler. Transvaginal imaging is performed due to inadequate visualization transabdominally. FINDINGS: Uterus: The uterus is anteverted, anteflexed and measures 8.8 x 4.6 x 5.9 cm. The cervix appears normal sonographically, with small nabothian cysts present. The double wall endometrial thickness is 11 mm. It is uniform without irregularity. The uterus is smooth in contour and has normal myometrial echogenicity. No visible fibroid. Adnexa: Both ovaries are visualized. There is normal color flow to the adnexa. There is no ovarian torsion. There is no pelvic ascites or fluid collection. There are no adnexal masses. Right ovary measures 3.5 x 2.9 x 3.8 cm. Volume = 20.3 mL. Normal sonographic appearance. Left ovary measures 3.4 x 2.3 x 2.6 cm. Volume = 10.7 mL. Normal sonographic appearance. US/US pelvic and transvaginal IMPRESSION: Normal pelvic ultrasound. Electronically signed by: Amilcar Diaz MD 07/14/2025 02:31 PM EDT Dictated By: Amilcar Diaz MD Signed By: <Electronically signed by Amilcar Diaz MD in OV> 07/14/25 1431 DD/ 1408 TD/TT: 07/14/25 1418 [address] Supervisor: us [facility] External Provider IMG US PROCEDURES Final Result * XR Knee 3 Views Right (07/14/2025 10:25 AM EDT) Anatomical Region Laterality Modality Lower Extremities, Knee Right Radiogra phic Imaging 07/14/2025 10:2 5 AM EDT Narrative 07/14/2025 10:40 AM EDT [address] [address] XRay Report Signed Patient: Timothy Phelan MR#: [id number] : 1985 Acct:[id number] Age/Sex: 40 / F ADM Date: 07/14/25 Loc: HO.US Attending Dr: Jack Justin MD Ordering Physician: Maile Coy MD Date of Service: 07/14/25 Procedure(s): XR knee RT 3V Accession Number(s): [id number] cc: Maile Coy MD Reason for Exam: [...] 07/14/25 1037 DD/ 1025 TD/TT: 07/14/25 10[address] Supervisor: Procedure Note Donotuseinterpreter, Image - 07/14/2025 [place] [address] XRay Report Signed Patient: Tiffany Phelan#: [id number] : 1985Acct:[id number] Age/Sex: 40 / FADM Date: 07/14/25 Loc: HO.US Attending Dr: Jack Justin MD Ordering Physician: Maile Coy MD Date of Service: 07/14/25 Procedure(s): XR knee RT 3V Accession Number(s): [id number] cc: Maile Coy MD Reason for Exam: [...] 07/14/25 1037 DD/ 1025 TD/TT: 07/14/25 10[address] Supervisor: us Maile Coy MD IMG XR PROCEDURES Final Result * Lipid Panel with Reflex to Direct LDL (04/21/2025 6:43 AM EDT) Triglycerides 136 <150 mg/dL [facility] Comment:Desirable Triglyceri de: less than 150 mg/dLBorderline High Triglyceride 150-199 mg/dLHigh Triglyceride: 200-499 mg/dLVery High Triglyceride: greater than or equal to 5OO mg/dL Cholesterol 162 <200 mg/dL [facility] Comment:Desirable Cholestero l: less than 200 mg/dLBorderline High Cholesterol: 200-239 mg/dLHigh Cholesterol: greater than 239 mg/dL LDL Cholesterol Calculated 87 <100 mg/dL [facility] Comment:Desirable LDL: less than 100 mg/dLNear Optimal/Above Optimal LDL: 110- 129 mg/dLBorderline High LDL: 130-159 mg/dLHigh LDL: 160-189 mg/dLVery High LDL: greater than or equal to 190 mg/dL HDL Cholesterol 48 >40 mg/dL [facility] Comment:Desirable HDL: great er than 40 mg/dL Note: This HDL assay may give artificially low results in patients with liver disease. Blood 04/21/2025 6:43 AM EDT 04/21/2025 6:43 AM EDT us Maile Coy MD LAB BLOOD ORDERABLES Fin al Result [facility] [address] [place] [phone] * Pap Smear (01/27/2024 9:52 AM EDT) 01/27/2024 9:52 AM EDT 01/27/2024 1:00 PM EDT Donaldo [facility] - 02/15/2024 12:06 PM EDT ----- ------- Name: Timothy Phelan Age/Sex: 39/F : 1985 Unit#: [id number] Attend Dr: Jack Justin MD Re01/27/24 Status: DEP REF Location: [facility] Disch: ----- ------- SPEC : [id number] RECD: 01/27/24 STATUS: MARIA R SERRATO NUM: [id number] ASHLEY: 01/27/[address] [facility] DR: Jack Justin MD ENTERED: 01/27/24 SP [...] 59, 66, 68) HPV testing performed by [employer], [place], [place]. See reference laboratory portion of the EMR for entire report. Clinical Information LMP: 01/10/2024 Previous PAP test: 2022, HPV+ Material Received ThinPrep-Cervical Copies To: Maile Coy MD [address] [place] [address] Jack Justin MD [address] [place] [address] Dr. Odom [address] [place] [phone] ----- ------- Signed (signature on file) ERIKA Ochoa (ASCP) 02/15/24 1206 ----- ------- END OF REPORT Generic External Data Provider LAB CYTOLOGY SON ECHOLS Final Result [facility] [address] [place] [address] [phone] * (ABNORMAL) HPV mRNA E6/E7 w/Reflex to HPV Genotypes 16, 18/45 (10/14/2022 9:11 AM EST) HPV nRNA E6/E7 Detected(A ) Not Detected [facility] Comment:Methodology: Transcr iption-Mediated AmplificationThis assay detects E6/E7 viral messenger RNA (mRNA) from 14high-risk HPV types (16,18,31,33,35,39,45,51,52,56,58,59,66,68).Cervical sources are required for HPV testing.If a vaginal source from a patient who has had atotal hysterectomy with removal of cervix wassubmitted, please contact the testing laboratoryfor alternative testing options.For additional information, please refer tohttp://[employer]uc[employer]/faq/KRP906k1(This link if provided for information/educational purposes only.)THIS TEST WAS PERFORMED AT:[employer] [place] [address] (1)[place] [phone] KULKARNI MD HPV 16 RNA NOT DETECTED NOT DETECTED [facility] HPV 18/45 RNA NOT DETECTED NOT DETECTED [facility] Comment:Methodology: Transcr iption Mediated AmplificationCervical sources are required for HPV testing.If a vaginal source from a patient who has had atotal hysterectomy with removal of cervix wassubmitted, please contact the testing laboratoryfor alternative testing options.THIS TEST WAS PERFORMED AT:[employer] [place] [address] ([facility])[place] [id number] KULKARNI MD 10/14/2022 9:11 AM EST 10/14/2022 11:50 AM EST [facility] External Provider LAB CYT OLOGY ORDERABLES Final Result [facility] [address] [place] [phone] * HEPATITIS C AB W/REFL TO HCV RNA, QN, PCR (02/27/2021 11:07 AM EDT) HEPATITIS C ANTIBODY NON-REACT [facility] NON-REACT [facility] INDEX 0.01 <1.00 [email or web address] Comment: HCV antibody was non-reactive. There is no laboratory evidence of HCV infection. In most cases, no further action is required. However, if recent HCV exposure is suspected, a test for HCV RNA (test code 73625) is suggested. For additional information please refer to http://[employer].Bucmi/faq/ZDT65a8 (This link is being provided for informational/ educational purposes only.) 02/27/2021 11:0 7 AM EDT Yvonne Peterson NP HISTORICAL/NON ORDERABLE LABS F inal Result Performing Organization Address [facility] de Phone Number [facility] [address] * HIV 1/2 ANTIGEN/ANTIBODY,FOURTH GENERATION W/RFL (02/27/2021 11:07 AM EDT) HIV-1/2 ANTIGEN AND ANTIBODIES, 4TH GENERATION W/ REFLEX NON-REACT [facility] NON-REACT [facility] Comment: HIV-1 antigen and HIV-1/HIV-2 [...] purpose. For additional information please refer to http://education.[employer]/faq/FSK523 (This link is being provided for informational/ educational purposes only.) The performance of this assay has not been clinically validated in patients less than 2 years old. 02/27/2021 11:0 7 AM EDT Yvonne Peterson NP LAB BLOOD ORDERABLES Final Resu lt Performing Organization Address [facility] Co de Phone Number [facility] [address] from Last 3 Months or Most Recently Relevant to Health Maintenance Insurance [facility] [address] Care Teams Resident Care Assistant Relationship Specialty Start Date End Date Maile Coy MD [address] [place] [phone] PCP - General Family Medicine 06/25/17
--- OUTSIDE RECORDS SUMMARY | 2025-07-26 13:59 | XMS_ITS | Encounter Summary ---
Author Organization [employer] Address [address] [place] [address] [place] [address] Care Team Providers Care Character Impersonator Name Role Phone Maile Coy MD Primary Care Provider + Encounter Details Date Type Department Care Team (Latest Contact Info) Description 09/15/2019 Abstract [facility] CONVERSIONS Dental, Provider, DDS Social History [...] Description 09/18/2025 11:15 AM EST Office Visit [facility] [address] [place] [address] Maile Coy MD [address] [place] [address] documented as of this encounter Visit Diagnoses Not on filedocumented in this encounter Care Teams Character Impersonator Relationship Specialty Start Date End Date Maile Coy MD [address] [place] [address] PCP - General Family Medicine 06/25/17 documented as of this encounter
== END 2025-07-26 08:37 | disposition home or self-care (01) ==
LOC: HO.LNP 08:36
PROVIDERS: PCP Internal Medicine; Visit Provider Obstetrics & Gynecology
DX: N93.9 Abnormal uterine and vaginal bleeding, unspecified (principal)
CPT/HCPCS: 58100; 88305